=== PATIENT | female | born 1960 | race Caucasian/White ===

== ENCOUNTER 2018-02-17 14:32 | Emergency (ER) | payer BC ==
[2018-02-17 15:31] LABS: Basophils % (A) 1 %; Eosinophils # (A) 0.3 k/uL (0-0.7); Eosinophils % (A) 7 %; HCT 35.4 % (34.0-46.0); HGB 11.1 gm/dL (11.4-16.0); Hypochromasia Slight; Lymphocytes # (A) 1.6 k/uL (1.0-4.8); Lymphocytes % (A) 33 %; MCH 27.3 pg (25.0-35.0); MCHC 31.4 g/dL (31.0-37.0); Mean Platelet Volume 6.9; Monocytes # (A) 0.4 k/uL (0-1.0); Monocytes % (A) 8 %; Neutrophils # (A) 2.4 k/uL (1.3-7.7); Neutrophils % (A) 49 %; Platelet Count 230 k/uL (150-450); RBC 4.07 m/uL (3.80-5.40); RDW 14.1 % (11.5-15.5); WBC 4.9 k/uL (3.8-10.6)
[2018-02-17] MEDS ORDERED: IOPAMIDOL-300 CONTRAST 30 ML VIAL (ORAL USE) PO PRN (15:45)
[2018-02-17] MEDS ORDERED: SODIUM CHLORIDE 0.9% 1,000 ML IV STA (15:45)
[2018-02-17] MEDS ORDERED: HYDROmorphone 1 MG/ML 1 ML SYRINGE IVP STA ×3 (15:45→19:11)
[2018-02-17] MEDS ORDERED: FAMOTIDINE 20 MG/2 ML VIAL IV STA (15:46)
[2018-02-17 15:47] LABS: ALT 34 U/L (9-52); AST 32 U/L (14-36); Alkaline Phosphatase 59 U/L (38-126); Amylase 68 U/L (30-110); Anion Gap 9 mmol/L; Blood Urea Nitrogen 18 mg/dL (7-17); Calcium 9.3 mg/dL (8.4-10.2); Carbon Dioxide 25 mmol/L (22-30); Chloride 106 mmol/L (98-107); Glucose 92 mg/dL (74-99); Lipase 95 U/L (23-300); Potassium 4.4 mmol/L (3.5-5.1); Sodium 140 mmol/L (137-145); Total Bilirubin 0.3 mg/dL (0.2-1.3); Total Protein 6.4 g/dL (6.3-8.2)
--- NOTE | 2018-02-17 15:55 | ED ---
General Adult HPI - General Chief complaint: Abdominal Pain Stated complaint: Back/Abd Pain Time Seen by Provider: 02/17/18 15:34 Source: patient, RN notes reviewed Mode of arrival: ambulatory Limitations: no limitations - History of Present Illness Initial comments: Patient is a pleasant 57-year-old female presenting to the emergency Department with abdominal discomfort. Onset was middle morning. Discomfort was more in the back at first however now is evenly between the abdomen and back. Discomfort is not necessary positional. Discomfort is diffusely the abdomen. No associated nausea or vomiting. patient diarrhea. No fevers. Discomfort is becoming severe. Patient has had occasional abdominal discomfort however not quite like this. - Related Data Home Medications Medication Instructions Recorded Confirmed Biotin 5 mg PO DAILY 02/17/18 02/17/18 Cholecalciferol (Vitamin D3) 2,000 unit PO DAILY 02/17/18 02/17/18 [Vitamin D3] Magnesium Oxide 400 mg PO DAILY 02/17/18 02/17/18 Omeprazole Magnesium [PriLOSEC OTC] 20 mg PO DAILY 02/17/18 02/17/18 Potassium 99 mg PO DAILY 02/17/18 02/17/18 Ubidecarenone [Co Q-10] 100 mg PO DAILY 02/17/18 02/17/18 Vitamin B Complex 1 cap PO DAILY 02/17/18 02/17/18 Allergies Allergy/AdvReac Type Severity Reaction Status Date / Time No Known Allergies Allergy Verified 02/17/18 17:50 Review of Systems ROS Statement: Those systems with pertinent positive or pertinent negative responses have been documented in the HPI. ROS Other: All systems not noted in ROS Statement are negative. Constitutional: Denies: fever Eyes: Denies: eye pain ENT: Denies: ear pain Respiratory: Denies: cough Cardiovascular: Denies: chest pain Endocrine: Denies: fatigue Gastrointestinal: Reports: abdominal pain. Denies: nausea, vomiting Genitourinary: Denies: dysuria Musculoskeletal: Reports: back pain Skin: Denies: rash Neurological: Denies: weakness Past Medical History Past Medical History: No Reported History History of Any Multi-Drug Resistant Organisms: None Reported Past Surgical History: Hernia Repair, Tubal Ligation Additional Past Surgical History / Comment(s): gastric bypass, Past Psychological History: Depression Smoking Status: Never smoker Past Alcohol Use History: None Reported Past Drug Use History: None Reported General Exam Limitations: no limitations General appearance: alert, in no apparent distress Head exam: Present: atraumatic Eye exam: Present: normal appearance, PERRL ENT exam: Present: normal oropharynx Neck exam: Present: normal inspection Respiratory exam: Present: normal lung sounds bilaterally Cardiovascular Exam: Present: regular rate, normal rhythm Expanded Peripheral pulses: 2+: Radial (R), Radial (L), Dorsalis Pedis (R), Dorsalis Pedis (L) GI/Abdominal exam: Present: soft, tenderness (Moderate tenderness in the epigastric region), normal bowel sounds. Absent: distended, guarding, rebound, rigid, pulsatile mass Extremities exam: Present: normal inspection. Absent: pedal edema, calf tenderness Back exam: Present: normal inspection. Absent: tenderness, CVA tenderness (R), CVA tenderness (L), vertebral tenderness Neurological exam: Present: alert Psychiatric exam: Present: normal affect, normal mood Skin exam: Present: normal color Course Vital Signs 02/17/18 02/17/18 15:03 17:06 Temperature 98.4 F 97.4 F L Pulse Rate 59 L 68 Respiratory 18 18 Rate Blood Pressure 161/88 173/76 O2 Sat by Pulse 100 98 Oximetry - Reevaluation(s) Reevaluation #1: 02/17/18 17:06 Case was discussed with Dr. Witt who states she does not manage bariatric cases. She recommends calling who is on-call for Dr. Pinto otherwise patient will need to be transferred. 02/17/18 17:19 Patient states her surgery was over a decade ago someplace in [place]. Patient does not recall which hospital it was at. Patient does not recall who her surgeon was. 02/17/18 17:34 Case was discussed with Dr. Abdalla who also has concerns regarding full bariatric surgery. Case was also discussed with Dr. Forman who was not available at this time, she is not on-call. Patient and family are again updated. They do not want to make a decision on which facility transfer at this time until they talk to another family member. They are encouraged to make a decision in the near future as there is concern for worsening of patient' s condition. 02/17/18 17:45 Patient believes her surgery was at [facility] and they are being contacted at this time. 02/17/18 17:56 Case was discussed with Jasper at [facility] transfer. He was specifically made aware that this was an emergent transfer and patient would likely need surgery in the near future. He does request the face sheet faxed to him and he will contact us back. 02/17/18 18:18 Jasper from [facility] did call back and states they unable to find records of patient's surgery there. They will attempt to find a surgeon for me to talk to. 02/17/18 19:06 Case was discussed with Dr. Siddiqui at [facility]. He states patient did have her surgery at [facility] with Dr. Ayala previously and will accept the patient to [facility]. EKG Findings - EKG Comments: EKG Findings:: Normal sinus rhythm 60. [place] 152. QRS 88. QT 446. QTc 446. Normal axis. Normal QRS. No acute ST change. Medical Decision Making - Lab Data Result diagrams: 02/17/18 15:19 02/17/18 15:19 Lab Results 02/17/18 02/17/18 02/17/18 Range/Units 15:19 15:19 15:19 WBC 4.9 (3.8-10.6) k/uL RBC 4.07 (3.80-5.40) m/uL Hgb 11.1 L (11.4-16.0) gm/dL Hct 35.4 (34.0-46.0) % MCV 87.0 (80.0-100.0) fL MCH 27.3 (25.0-35.0) pg MCHC 31.4 (31.0-37.0) g/dL RDW 14.1 (11.5-15.5) % Plt Count 230 (150-450) k/uL Neutrophils % 49 % Lymphocytes % 33 % Monocytes % 8 % Eosinophils % 7 % Basophils % 1 % Neutrophils # 2.4 (1.3-7.7) k/uL Lymphocytes # 1.6 (1.0-4.8) k/uL Monocytes # 0.4 (0-1.0) k/uL Eosinophils # 0.3 (0-0.7) k/uL Basophils # 0.0 (0-0.2) k/uL Hypochromasia Slight PT (9.0-12.0) sec INR (<1.2) APTT (22.0-30.0) sec Sodium 140 (137-145) mmol/L Potassium 4.4 (3.5-5.1) mmol/L Chloride 106 (98-107) mmol/L Carbon Dioxide 25 (22-30) mmol/L Anion Gap 9 mmol/L BUN 18 H (7-17) mg/dL Creatinine 0.70 (0.52-1.04) mg/dL Est GFR (CKD-EPI)AfAm >90 (>60 ml/min/1.73 sqM) Est GFR (CKD-EPI)NonAf >90 (>60 ml/min/1.73 sqM) Glucose 92 (74-99) mg/dL Calcium 9.3 (8.4-10.2) mg/dL Total Bilirubin 0.3 (0.2-1.3) mg/dL AST 32 (14-36) U/L ALT 34 (9-52) U/L Alkaline Phosphatase 59 (38-126) U/L Total Creatine Kinase 331 H (30-135) U/L CK-MB (CK-2) 1.4 (0.0-2.4) ng/mL CK-MB (CK-2) Rel Index 0.4 Troponin I <0.012 (0.000-0.034) ng/mL Total Protein 6.4 (6.3-8.2) g/dL Albumin 4.0 (3.5-5.0) g/dL Amylase 68 (30-110) U/L Lipase 95 (23-300) U/L Urine Color Urine Appearance (Clear) Urine pH (5.0-8.0) Ur Specific [place] (1.001-1.035) Urine Protein (Negative) Urine Glucose (UA) (Negative) Urine Ketones (Negative) Urine Blood (Negative) Urine Nitrite (Negative) Urine Bilirubin (Negative) Urine Urobilinogen (<2.0) mg/dL Ur Leukocyte Esterase (Negative) Urine RBC (0-5) /hpf Urine WBC (0-5) /hpf Ur Squamous Epith Cells (0-4) /hpf Amorphous Sediment (None) /hpf 02/17/18 02/17/18 Range/Units 15:19 18:36 WBC (3.8-10.6) k/uL RBC (3.80-5.40) m/uL Hgb (11.4-16.0) gm/dL Hct (34.0-46.0) % MCV (80.0-100.0) fL MCH (25.0-35.0) pg MCHC (31.0-37.0) g/dL RDW (11.5-15.5) % Plt Count (150-450) k/uL Neutrophils % % Lymphocytes % % Monocytes % % Eosinophils % % Basophils % % Neutrophils # (1.3-7.7) k/uL Lymphocytes # (1.0-4.8) k/uL Monocytes # (0-1.0) k/uL Eosinophils # (0-0.7) k/uL Basophils # (0-0.2) k/uL Hypochromasia PT 9.8 (9.0-12.0) sec INR 1.0 (<1.2) APTT 23.0 (22.0-30.0) sec Sodium (137-145) mmol/L Potassium (3.5-5.1) mmol/L Chloride (98-107) mmol/L Carbon Dioxide (22-30) mmol/L Anion Gap mmol/L BUN (7-17) mg/dL Creatinine (0.52-1.04) mg/dL Est GFR (CKD-EPI)AfAm (>60 ml/min/1.73 sqM) Est GFR (CKD-EPI)NonAf (>60 ml/min/1.73 sqM) Glucose (74-99) mg/dL Calcium (8.4-10.2) mg/dL Total Bilirubin (0.2-1.3) mg/dL AST (14-36) U/L ALT (9-52) U/L Alkaline Phosphatase (38-126) U/L Total Creatine Kinase (30-135) U/L CK-MB (CK-2) (0.0-2.4) ng/mL CK-MB (CK-2) Rel Index Troponin I (0.000-0.034) ng/mL Total Protein (6.3-8.2) g/dL Albumin (3.5-5.0) g/dL Amylase (30-110) U/L Lipase (23-300) U/L Urine Color Yellow Urine Appearance Clear (Clear) Urine pH 5.0 (5.0-8.0) Ur Specific [place] 1.041 H (1.001-1.035) Urine Protein Negative (Negative) Urine Glucose (UA) Negative (Negative) Urine Ketones 1+ H (Negative) Urine Blood Trace H (Negative) Urine Nitrite Negative (Negative) Urine Bilirubin Negative (Negative) Urine Urobilinogen <2.0 (<2.0) mg/dL Ur Leukocyte Esterase Moderate H (Negative) Urine RBC 3 (0-5) /hpf Urine WBC 12 H (0-5) /hpf Ur Squamous Epith Cells 6 H (0-4) /hpf Amorphous Sediment Rare H (None) /hpf - Radiology Data Radiology results: report reviewed (Computed tomography scan of the abdomen and pelvis has small bowel mesentery edema and spiral appearance of the vessels that could be related to torsion. There is abrupt change in diameter of the SMA.) Critical Care Time Critical Care Time: Yes Total Critical Care Time: 35 Disposition Clinical Impression: Torsion of intestine, bowel or colon Disposition: OTHER INSTITUTION NOT DEFINED Condition: Serious Is patient prescribed a controlled substance at d/c from ED?: No Referrals: Nonstaff,Physician [Primary Care Provider] - 1-2 days Time of Disposition: 19:07 - Out of Hospital Transfer - Req. Specs Out of Hospital Transfer - Requested Specifics: Other Emergency Center
[2018-02-17 16:04] LABS: Prothrombin Time 9.8 sec (9.0-12.0)
[2018-02-17 16:05] LABS: Creatine Kinase 331 U/L (30-135)
[2018-02-17 16:18] LABS: Creatine Kinase MB 1.4 ng/mL (0.0-2.4); Troponin I <0.012 ng/mL (0.000-0.034)
--- NOTE | 2018-02-17 16:58 | CT ---
EXAMINATION TYPE: CT abdomen pelvis w con DATE OF EXAM: 02/17/2018 COMPARISON: None HISTORY: Abdominal pain with nausea, hx of gastric bypass CT DLP: 1072 mGycm Automated exposure control for dose reduction was used. TECHNIQUE: Helical acquisition of images was performed from the lung bases through the pelvis. CONTRAST: Performed with Oral Contrast and with IV Contrast, patient injected with 100 mL of Isovue 300. FINDINGS: Lung bases are clear. There is no pleural effusion. Heart size is normal. There are multiple cysts in the liver that measure up to 3 cm. There are clips from cholecystectomy. The common bile duct is large and measures 1.3 cm. There is no evidence of a pancreatic mass. There a re surgical clips from bariatric surgery. Spleen appears normal. I see no intestinal wall thickening. There are no dilated loops. There is small amount of free fluid in the pelvis. Bladder distends smoothly. Uterus is anteverted. There is no adrenal mass. Kidneys show satisfactory contrast opacification. There is no hydronephrosi s. there is probably some small bowel mesenteric edema. The lumbar spine is intact. There is degener ative disc space narrowing at L5-S1. Appendix measures 7 to 8 mm. I see no inflammatory changes. Ther e is spiral Appearance of the small bowel mesentery. IMPRESSION: THERE IS SOME SMALL BOWEL MESENTERIC EDEMA AND SPIRAL APPEARANCE OF THE SMALL BOWEL MESENTERIC VESSEL S THAT COULD RELATE TO A TORSION. THERE IS ABRUPT CHANGE IN DIAMETER OF THE SUPERIOR MESENTERIC ARTER Y THAT IS BEST SEEN ON SAGITTAL IMAGE 35. MULTIPLE HEPATIC CYSTS. PREVIOUS BARIATRIC SURGERY. NO SIGN OF APPENDICITIS. THIS EXAM WAS DISCUSSED WITH THE ER PHYSICIAN AT 4:50 PM.
[2018-02-17] MEDS ORDERED: ONDANSETRON 4 MG/2 ML VIAL IVP STA ×2 (17:05→19:11)
[2018-02-17 18:51] LABS: Amorphous Sediment,Urine Rare /hpf; Appearance,Urine Clear (Clear); Bilirubin,Urine Negative (Negative); Blood,Urine Trace (Negative); Color,Urine Yellow; Glucose,Urine (UA) Negative (Negative); Ketones,Urine 1+ (Negative); Leukocyte Esterase,Urine Moderate (Negative); Nitrite,Urine Negative (Negative); Protein,Urine Negative (Negative); RBC,Urine 3 /hpf (0-5); Specific Gravity,Urine 1.041 (1.001-1.035); Squamous Epithelial Cell,Urine 6 /hpf (0-4); Urobilinogen,Urine <2.0 mg/dL (<2.0); WBC,Urine 12 /hpf (0-5)
[2018-02-17 19:26] VITALS: BP 186/90; PULSE 83; RESP 17; TEMP 98.8
== END 2018-02-17 19:27 | disposition other institution (70) ==
LOC: EC 14:32 → MERGE 14:32 → EC 19:27
DX: K56.2 Volvulus (principal); Z79.899 Other long term (current) drug therapy; Z98.84 Bariatric surgery status
CPT/HCPCS: 36415; 93005; 80053; 82150; 82550; 82553; 83690; 84484; 85025; 85610; 85730; 81001; 74177; 99291; 96374; 96375 ×2; 96376 ×3; 96361; J2405; J1170; Q9967

== ENCOUNTER 2020-04-17 19:53 | Inpatient (IN) | payer BC ==
--- NOTE | 2020-04-17 20:29 | ED ---
Abdominal Pain HPI - General Chief Complaint: Abdominal Pain Stated Complaint: Abdominal pain Time Seen by Provider: 04/17/20 20:00 Source: patient Mode of arrival: ambulatory Limitations: no limitations - History of Present Illness Initial Comments: 59-year-old female history of previous hernia repair, gastric bypass presenting today for chief complaint of lower abdominal pain nausea. Patient states that she has had lower abdominal pain increasing for the past 3 days. She states. He'll be much secondary to the pain as well as the nausea denies vomiting she states that her bowel movements are smaller and now more soft. She denies alin diarrhea. Denies constipation. Patient denies any fevers rashes or upper respiratory symptoms. Patient started additional complaints upon arrival patient appears nontoxic, she does appear slightly uncomfortable with a lot of movement - Related Data Home Medications Medication Instructions Recorded Confirmed Omeprazole Magnesium [PriLOSEC OTC] 20 mg PO DAILY 02/17/18 04/17/20 DULoxetine HCL [Cymbalta] 60 mg PO DAILY 04/17/20 04/17/20 hydrOXYzine pamoate [Vistaril] 25 mg PO BID 04/17/20 04/17/20 Allergies Allergy/AdvReac Type Severity Reaction Status Date / Time No Known Allergies Allergy Verified 04/17/20 19:57 Review of Systems ROS Statement: Those systems with pertinent positive or pertinent negative responses have been documented in the HPI. ROS Other: All systems not noted in ROS Statement are negative. Past Medical History Past Medical History: No Reported History History of Any Multi-Drug Resistant Organisms: None Reported Past Surgical History: Hernia Repair, Tubal Ligation Additional Past Surgical History / Comment(s): gastric bypass Past Psychological History: Depression Smoking Status: Never smoker Past Alcohol Use History: None Reported Past Drug Use History: None Reported General Exam - General Exam Comments Initial Comments: General: The patient is awake and alert, in no distress Eye: Pupils are equal, round and reactive to light, extra-ocular movements are intact. No nystagmus. There is normal conjunctiva bilaterally. No signs of icterus. Ears, nose, mouth and throat: There are moist mucous membranes and no oral lesions. Neck: The neck is supple, there is no tenderness or JVD. Cardiovascular: There is a regular rate and rhythm. No murmur, rub or gallop is appreciated. Respiratory: Lungs are clear to auscultation, respirations are non-labored, breath sounds are equal. No wheezes, stridor, rales, or rhonchi. Gastrointestinal: Soft, non-distended, diffuse moderate lower abdominal tenderness to palpation, abdomen without masses or organomegaly noted. There is no rebound or guarding present. Musculoskeletal: Normal ROM, no tenderness. Strength 5/5. Sensation intact. Radial pulses equal bilaterally 2+. Neurological: A&O x 3. CN II-XII intact grosslly, There are no obvious motor or sensory deficits. Coordination appears grossly intact. Speech is normal. Skin: Skin is warm and dry and no rashes or lesions are noted. Psychiatric: Cooperative, appropriate mood & affect, normal judgment. Limitations: no limitations Course Vital Signs 04/17/20 04/17/20 04/17/20 19:55 21:19 22:15 Temperature 97.0 F L 97.9 F Pulse Rate 75 75 82 Respiratory 18 18 18 Rate Blood Pressure 148/91 145/89 138/80 O2 Sat by Pulse 100 99 96 Oximetry Medical Decision Making - Medical Decision Making Pt appears clinically dry, labs reflect increase of Cr consistent with dehydration giivne history. Patient CT concerning for possible developing obstruction. Patient is tender on exam. I feel this is most likely diagnosis with hx of prevous intraabdominal surgeries. Patient case discussed with Dr. Guajardo who reviewd CT/Labs he is agreeable to admission. Dr. Hobbs accepted admission, i spoke to him in person in the ER. - Lab Data Result diagrams: 04/17/20 20:16 04/17/20 20:16 Lab Results 04/17/20 04/17/20 04/17/20 Range/Units 20:16 20:16 20:16 WBC 6.8 (3.8-10.6) k/uL RBC 4.41 (3.80-5.40) m/uL Hgb 12.1 (11.4-16.0) gm/dL Hct 38.4 (34.0-46.0) % MCV 87.1 (80.0-100.0) fL MCH 27.5 (25.0-35.0) pg MCHC 31.6 (31.0-37.0) g/dL RDW 14.5 (11.5-15.5) % Plt Count 258 (150-450) k/uL Neutrophils % 57 % Lymphocytes % 28 % Monocytes % 7 % Eosinophils % 4 % Basophils % 1 % Neutrophils # 3.9 (1.3-7.7) k/uL Lymphocytes # 1.9 (1.0-4.8) k/uL Monocytes # 0.5 (0-1.0) k/uL Eosinophils # 0.3 (0-0.7) k/uL Basophils # 0.0 (0-0.2) k/uL Hypochromasia Slight Sodium 138 (137-145) mmol/L Potassium 4.3 (3.5-5.1) mmol/L Chloride 107 (98-107) mmol/L Carbon Dioxide 25 (22-30) mmol/L Anion Gap 6 mmol/L BUN 24 H (7-17) mg/dL Creatinine 1.14 H (0.52-1.04) mg/dL Est GFR (CKD-EPI)AfAm 62 (>60 ml/min/1.73 sqM) Est GFR (CKD-EPI)NonAf 53 (>60 ml/min/1.73 sqM) Glucose 84 (74-99) mg/dL Calcium 9.4 (8.4-10.2) mg/dL Total Bilirubin 0.3 (0.2-1.3) mg/dL AST 22 (14-36) U/L ALT 13 (4-34) U/L Alkaline Phosphatase 77 (38-126) U/L Total Protein 6.8 (6.3-8.2) g/dL Albumin 4.1 (3.5-5.0) g/dL Amylase 74 (30-110) U/L Lipase 137 (23-300) U/L Urine Color Light Yellow Urine Appearance Clear (Clear) Urine pH 5.0 (5.0-8.0) Ur Specific [place] 1.008 (1.001-1.035) Urine Protein Negative (Negative) Urine Glucose (UA) Negative (Negative) Urine Ketones Negative (Negative) Urine Blood Trace H (Negative) Urine Nitrite Negative (Negative) Urine Bilirubin Negative (Negative) Urine Urobilinogen <2.0 (<2.0) mg/dL Ur Leukocyte Esterase Large H (Negative) Urine RBC 3 (0-5) /hpf Urine WBC 14 H (0-5) /hpf Ur Squamous Epith Cells 1 (0-4) /hpf Urine Mucus Rare H (None) /hpf Disposition Clinical Impression: Partial bowel obstruction, Abdominal pain, Nausea Disposition: ADMITTED IP TO THIS [facility] Condition: Stable Is patient prescribed a controlled substance at d/c from ED?: No Referrals: Nonstaff,Physician [Primary Care Provider] - 1-2 days Time of Disposition: 22:19 Decision to Admit Reason: Admit from EC Decision Date: 04/17/20 Decision Time: 22:19
[2020-04-17 20:33] LABS: Basophils % (A) 1 %; Eosinophils # (A) 0.3 k/uL (0-0.7); Eosinophils % (A) 4 %; HCT 38.4 % (34.0-46.0); HGB 12.1 gm/dL (11.4-16.0); Hypochromasia Slight; Lymphocytes # (A) 1.9 k/uL (1.0-4.8); Lymphocytes % (A) 28 %; MCH 27.5 pg (25.0-35.0); MCHC 31.6 g/dL (31.0-37.0); MCV 87.1 fL (80.0-100.0); Mean Platelet Volume 7.2; Monocytes # (A) 0.5 k/uL (0-1.0); Monocytes % (A) 7 %; Neutrophils # (A) 3.9 k/uL (1.3-7.7); Neutrophils % (A) 57 %; Platelet Count 258 k/uL (150-450); RBC 4.41 m/uL (3.80-5.40); RDW 14.5 % (11.5-15.5); WBC 6.8 k/uL (3.8-10.6)
[2020-04-17 20:41] LABS: Albumin 4.1 g/dL (3.5-5.0); Calcium 9.4 mg/dL (8.4-10.2); Potassium 4.3 mmol/L (3.5-5.1); Total Bilirubin 0.3 mg/dL (0.2-1.3); Total Protein 6.8 g/dL (6.3-8.2)
[2020-04-17 20:55] LABS: Appearance,Urine Clear (Clear); Bilirubin,Urine Negative (Negative); Blood,Urine Trace (Negative); Color,Urine Light Yellow; Glucose,Urine (UA) Negative (Negative); Ketones,Urine Negative (Negative); Leukocyte Esterase,Urine Large (Negative); Mucus,Urine Rare /hpf; Nitrite,Urine Negative (Negative); Protein,Urine Negative (Negative); RBC,Urine 3 /hpf (0-5); Specific Gravity,Urine 1.008 (1.001-1.035); Squamous Epithelial Cell,Urine 1 /hpf (0-4); Urobilinogen,Urine <2.0 mg/dL (<2.0); WBC,Urine 14 /hpf (0-5)
[2020-04-17] MEDS ORDERED: SODIUM CHLORIDE 0.9% 500 ML 500 ML IV ONE (21:03)
[2020-04-17] MEDS: SODIUM CHLORIDE 0.9% 1,000 ML IV SCH (21:18)
--- NOTE | 2020-04-17 21:31 | CT ---
EXAMINATION TYPE: CT abdomen pelvis w con DATE OF EXAM: 04/17/2020 COMPARISON: None HISTORY: Lower abdominal pain, hx abdominal sx CT DLP: 911.6 mGycm Automated exposure control for dose reduction was used. CONTRAST: Performed with IV Contrast, patient injected with 100 mL of Isovue 300. Lung bases are clear of infiltrate. There is no pleural effusion. Heart size is normal. There is prev ious gastric surgery. There are numerous cysts throughout the liver that measure up to 5.5 cm. Bile d ucts are not dilated. Spleen is intact. There is no evidence of pancreatic mass. There are clips from cholecystectomy. There is no adrenal mass. Kidneys show satisfactory contrast opacification. There is no hydronephrosi s. Delayed images show normal renal excretion. There is no retroperitoneal adenopathy. Bladder disten ds smoothly. Ureters are not dilated. There are multiple distended fluid-filled small bowel loops throughout the abdomen. Small bowel measu res up to 3 cm. there is no mesenteric edema. There is no ascites or free air. Lumbar vertebra have n ormal alignment. There is narrowing at L5-S1 disc. There is no compression fracture. Bony pelvis is i ntact. Uterus is retroverted. There is no free fluid in the pelvis. There is no inguinal hernia. Appe ndix is not seen. IMPRESSION: Distended small bowel with fluid that could relate to some ileus. Partial mechanical obstruction is p ossible. Transition point not seen. Polycystic disease of the liver.
[2020-04-17] MEDS ORDERED: ONDANSETRON 4 MG/2 ML VIAL IVP PRN (22:04)
[2020-04-17] MEDS ORDERED: MORPHINE SULFATE 2 MG/ML SYRINGE IVP PRN (22:07)
[2020-04-17] MEDS ORDERED: NALOXONE 0.4 MG/ML 1 ML VIAL IV PRN (22:07)
[2020-04-17] MEDS ORDERED: PIPERACILLIN-TAZOBACTAM 3.375 GM in SODIUM CHLORIDE 0.9% 100 ML IVPB ONE (22:30)
[2020-04-18] MEDS: SODIUM CHLORIDE 0.9% 1,000 ML IV SCH ×4 (00:04→22:35)
--- NOTE | 2020-04-18 03:00 | P.HPIM ---
History of Present Illness H&P Date: 04/18/20 The patient is a 59-year-old female with a PMH of gastric bypass and hernia repair who presented to the emergency room with complaints of right lower quadrant abdominal pain. The patient reports that her pain started a few weeks ago, is intermittent, varying in intensity from 3-7 out of 10, lasting for minutes at a time. She reported associated nausea without vomiting. Denied diarrhea or constipation. Also denied fever, chills. Reports never having such symptoms in the past. CT abdomen and pelvis in the emergency room revealed distended small bowel loops with fluid suspicious for ileus versus partial SBO. Laboratory evaluation was reviewed with BUN 24 and creatinine 1.14. Review of Systems Pertinent positives and negatives as discussed in HPI, a complete review of systems was performed and all other systems are negative. Past Medical History Past Medical History: No Reported History History of Any Multi-Drug Resistant Organisms: None Reported Past Surgical History: Hernia Repair, Tubal Ligation Additional Past Surgical History / Comment(s): gastric bypass Past Psychological History: Depression Smoking Status: Never smoker Past Alcohol Use History: None Reported Past Drug Use History: None Reported Medications and Allergies Home Medications Medication Instructions Recorded Confirmed Type Omeprazole Magnesium [PriLOSEC OTC] 20 mg PO DAILY 02/17/18 04/17/20 History DULoxetine HCL [Cymbalta] 60 mg PO DAILY 04/17/20 04/17/20 History hydrOXYzine pamoate [Vistaril] 25 mg PO BID 04/17/20 04/17/20 History Allergies Allergy/AdvReac Type Severity Reaction Status Date / Time No Known Allergies Allergy Verified 04/17/20 19:57 Physical Exam Vitals: Vital Signs Temp Pulse Pulse Resp BP BP Pulse Ox 04/17/20 23:53 97.8 F 67 18 155/88 96 04/17/20 22:15 97.9 F 82 18 138/80 96 04/17/20 21:19 75 18 145/89 99 04/17/20 19:55 97.0 F L 75 18 148/91 100 Intake and Output 04/17/20 04/17/20 04/18/20 14:59 22:59 06:59 Other: Weight 79.379 kg 79.379 kg General: non toxic, no distress, appears at stated age, normal weight Derm: no unusual rashes/lesions no unusual ecchymoses, warm, dry Head: atraumatic, normocephalic, symmetric Eyes: EOMI, no lid lag, anicteric sclera, pupils equal round reactive to light ENT: Nose and ears atraumatic, no thrush, no pharyngeal erythema Neck: No thyromegaly, no cervical lymphadenopathy, trachea midline, supple Mouth: no lip lesion, mucus membranes moist Cardiovascular: S1S2 reg, no murmur, positive posterior tibial pulse bilateral, no edema, capillary refill less than 2 seconds Lungs: CTA bilateral, no rhonchi, no rales , no accessory muscle use Abdominal: soft, right lower quadrant mild tenderness to palpation, no guarding, no appreciable organomegaly, normal bowel sounds Ext: no gross muscle atrophy, muscle strength 5 out of 5 in all 4 extremities grossly, no contractures, Neuro: CN II-XI grossly intact, light touch intact all 4 extremities, finger to nose within normal limits, Psych: Alert, oriented, appropriate affect Results CBC & Chem 7: 04/17/20 20:16 04/17/20 20:16 Labs: Abnormal Lab Results - Last 24 Hours (Table) 04/17/20 04/17/20 04/17/20 Range/Units 20:16 20:16 22:15 BUN 24 H (7-17) mg/dL Creatinine 1.14 H (0.52-1.04) mg/dL Plasma Lactic Acid [place] 0.6 L (0.7-2.0) mmol/L Urine Blood Trace H (Negative) Ur Leukocyte Esterase Large H (Negative) Urine WBC 14 H (0-5) /hpf Urine Mucus Rare H (None) /hpf Thrombosis Risk Factor Assmnt - Choose All That Apply Each Factor Represents 1 point: Age 41-60 years, Obesity (BMI >25) Thrombosis Risk Factor Assessment Total Risk Factor Score: 2 Thrombosis Risk Factor Assessment Level: Low Risk Assessment and Plan Plan: Abdominal pain, suspected partial SBO -Nothing by mouth for now -Surgery consult -Antiemetics Prerenal DEMLY -Continue with IV fluids -Monitor BMP DVT prophylaxis -IPCDs The patient is admitted with an anticipated less than 2 midnight stay for evaluation of abdominal pain CODE STATUS: Full Code Discussed with: Patient Anticipated discharge date: in am Anticipated discharge place: Home A total of 35 minutes was spent on the care of this complex patient more than 50% of the time was spent in counseling and care coordination.
[2020-04-18 09:49] LABS: African American GFR (CKD) 81.7 (60.0-200.0); Anion Gap 2.9 mmol/L (4.00-12.00); BUN/Creat Ratio 21.11 Ratio (12.00-20.00); Calcium 8.3 mg/dL (8.7-10.3); Carbon Dioxide 29.1 mmol/L (21.6-31.8); Non-African American GFR(CKD) 70.5 (60.0-200.0)
[2020-04-18] MEDS ORDERED: polyethylene glycoL 3350 17 GM POWD.PACK PO STA (11:37)
--- NOTE | 2020-04-18 12:45 | P.GSCN ---
<Giselle Lang - Last Filed: 04/18/20 13:34> History of Present Illness Consult date: 04/18/20 History of present illness: CHIEF COMPLAINT: Abdominal pain HISTORY OF PRESENT ILLNESS: This is a 59-year-old female with a past medical history of T[place]ion of the bowel [place] [facility] [place], gerd, gastric [place] 2009 [place] [facility] [place] hiatal hernia repair 3 and Tummy tuck. Patient presents to the emergency room with complaints of right lower quadrant abdominal pain has been intermittent for the last week. She reports that the pain is sharp in the right lower quadrant and also has had a burning sensation in her stomach. She denies any nausea or vomiting. Her last bowel movement was yesterday which was very small in diameter. She also reports that she is been passing gas. She denies any blood in her stools. She had a computed tomography scan of the abdomen and pelvis that showed distended small bowel with fluid that could relate to ileus. Partial mechanical obstruction is possible. Transition point not seen. Polycystic disease of the liver. She denies any fever, chills, sweat s or urinary symptoms. PAST MEDICAL HISTORY: See list. PAST SURGICAL HISTORY: See list. MEDICATIONS: See list. ALLERGIES: See list. SOCIAL HISTORY: No illicit drug use. REVIEW OF SYSTEMS: CONSTITUTIONAL: Denies fever or chills. HEENT: Denies blurred vision, vision changes, or eye pain. Denies hemoptysis CARDIOVASCULAR: Denies chest pain or pressure. RESPIRATORY: No shortness of breath. GASTROINTESTINAL: See HPI for pertinent findings HEMATOLOGIC: Denies bleeding disorders. GENITOURINARY: Denies any blood in urine or increased urinary frequency. SKIN: Denies pruitis. Denies rash. PHYSICAL EXAM: VITAL SIGNS: Reviewed GENERAL: Well-developed in no acute distress. HEENT: No sclera icterus. Extraocular movements grossly intact. Moist buccal mucosa. Head is atraumatic, normocephalic. No nasal drainage. ABDOMEN: Soft. Nondistended. Nontender NEUROLOGIC: Alert and oriented. Cranial nerves II through XII grossly intact. LABORATORY DATA: WBC 6.8 hemoglobin 12.1 creatinine 0.9 Lactic 0.6 Lipase and LFTs normal Urine culture pending IMAGING: computed tomography scan of the abdomen and pelvis that showed distended small bowel with fluid that could relate to ileus. Partial mechanical obstruction is possible. Transition point not seen. Polycystic disease of the liver. ASSESSMENT: 1. Ileus versus partial small bowel obstruction 2. History of Torsion of the bowel secondary to hernia [place] [facility] [place]. History of gastric bypass 2008 4. GERD PLAN: -recommend treating conservatively -Agree with full liquid diet -Continue with IV fluids Thank you for this consultation Physician Scientific Informatics Leader note has been reviewed by physician. Signing provider agrees with the documented findings, assessment, and plan of care. Past Medical History Past Medical History: No Reported History History of Any Multi-Drug Resistant Organisms: None Reported Past Surgical History: Hernia Repair, Tubal Ligation Additional Past Surgical History / Comment(s): gastric bypass Past Psychological History: Depression Smoking Status: Never smoker Past Alcohol Use History: None Reported Past Drug Use History: None Reported Medications and Allergies Home Medications Medication Instructions Recorded Confirmed Type Omeprazole Magnesium [PriLOSEC OTC] 20 mg PO DAILY 02/17/18 04/17/20 History DULoxetine HCL [Cymbalta] 60 mg PO DAILY 04/17/20 04/17/20 History hydrOXYzine pamoate [Vistaril] 25 mg PO BID 04/17/20 04/17/20 History Allergies Allergy/AdvReac Type Severity Reaction Status Date / Time No Known Allergies Allergy Verified 04/17/20 19:57 Surgical - Exam Vital Signs Temp Pulse Resp BP Pulse Ox 97.0 F L 75 18 148/91 100 04/17/20 19:55 04/17/20 19:55 04/17/20 19:55 04/17/20 19:55 04/17/20 19:55 Results - Labs 04/17/20 20:16 04/18/20 04:45 Abnormal Lab Results - Last 24 Hours (Table) 04/17/20 04/17/20 04/17/20 Range/Units 20:16 20:16 22:15 Chloride (96-109) mmol/L Anion Gap (4.00-12.00) mmol/L BUN 24 H (7-17) mg/dL Creatinine 1.14 H (0.52-1.04) mg/dL BUN/Creatinine Ratio (12.00-20.00) Ratio Plasma Lactic Acid Costa 0.6 L (0.7-2.0) mmol/L Calcium (8.7-10.3) mg/dL Urine Blood Trace H (Negative) Ur Leukocyte Esterase Large H (Negative) Urine WBC 14 H (0-5) /hpf Urine Mucus Rare H (None) /hpf 04/18/20 Range/Units 04:45 Chloride 110 H (96-109) mmol/L Anion Gap 2.90 L (4.00-12.00) mmol/L BUN (7-17) mg/dL Creatinine (0.52-1.04) mg/dL BUN/Creatinine Ratio 21.11 H (12.00-20.00) Ratio Plasma Lactic Acid Costa (0.7-2.0) mmol/L Calcium 8.3 L (8.7-10.3) mg/dL Urine Blood (Negative) Ur Leukocyte Esterase (Negative) Urine WBC (0-5) /hpf Urine Mucus (None) /hpf Microbiology - Last 24 Hours (Table) 04/17/20 20:16 Urine Culture - Preliminary Urine,Voided Diabetes panel 04/17/20 04/18/20 Range/Units 20:16 04:45 Sodium 138 142 (137-145) mmol/L Potassium 4.3 4.0 (3.5-5.1) mmol/L Chloride 107 110 H (98-107) mmol/L Carbon Dioxide 25 29.1 (22-30) mmol/L BUN 24 H 19.0 (7-17) mg/dL Creatinine 1.14 H 0.9 (0.52-1.04) mg/dL Glucose 84 87 (74-99) mg/dL Calcium 9.4 8.3 L (8.4-10.2) mg/dL AST 22 (14-36) U/L ALT 13 (4-34) U/L Alkaline Phosphatase 77 (38-126) U/L Total Protein 6.8 (6.3-8.2) g/dL Albumin 4.1 (3.5-5.0) g/dL Calcium panel 04/17/20 04/18/20 Range/Units 20:16 04:45 Calcium 9.4 8.3 L (8.4-10.2) mg/dL Albumin 4.1 (3.5-5.0) g/dL Pituitary panel 04/17/20 04/18/20 Range/Units 20:16 04:45 Sodium 138 142 (137-145) mmol/L Potassium 4.3 4.0 (3.5-5.1) mmol/L Chloride 107 110 H (98-107) mmol/L Carbon Dioxide 25 29.1 (22-30) mmol/L BUN 24 H 19.0 (7-17) mg/dL Creatinine 1.14 H 0.9 (0.52-1.04) mg/dL Glucose 84 87 (74-99) mg/dL Calcium 9.4 8.3 L (8.4-10.2) mg/dL Adrenal panel 04/17/20 04/18/20 Range/Units 20:16 04:45 Sodium 138 142 (137-145) mmol/L Potassium 4.3 4.0 (3.5-5.1) mmol/L Chloride 107 110 H (98-107) mmol/L Carbon Dioxide 25 29.1 (22-30) mmol/L BUN 24 H 19.0 (7-17) mg/dL Creatinine 1.14 H 0.9 (0.52-1.04) mg/dL Glucose 84 87 (74-99) mg/dL Calcium 9.4 8.3 L (8.4-10.2) mg/dL Total Bilirubin 0.3 (0.2-1.3) mg/dL AST 22 (14-36) U/L ALT 13 (4-34) U/L Alkaline Phosphatase 77 (38-126) U/L Total Protein 6.8 (6.3-8.2) g/dL Albumin 4.1 (3.5-5.0) g/dL <Mathew Williamson - Last Filed: 04/18/20 17:24> History of Present Illness History of present illness: As well. Patient with right lower abdominal pain. Pain is been off-and-on for the last 1 week. She states her pain has essentially been gone since she was admitted to the hospital. No nausea or vomiting. Bowel movement yesterday and today. CAT scan films show mild small bowel loop dilatation. Air and stool throughout the colon. Findings of ileus versus partial small bowel obstruction noted by radiology. Appendix is not visualized. Patient unsure if she has had her appendix removed in the past. She is hungry. She is currently tolerating full liquids. Patient does have a history of small bowel obstruction after gastric bypass in the past. States this does not remind her of that presentation/pain. We'll repeat abdominal films tomorrow. We'll follow. Surgical - Exam Vital Signs Temp Pulse Resp BP Pulse Ox 97.0 F L 75 18 148/91 100 04/17/20 19:55 04/17/20 19:55 04/17/20 19:55 04/17/20 19:55 04/17/20 19:55 Results - Labs 04/17/20 20:16 04/18/20 04:45 Abnormal Lab Results - Last 24 Hours (Table) 04/17/20 04/17/20 04/17/20 Range/Units 20:16 20:16 22:15 Chloride (96-109) mmol/L Anion Gap (4.00-12.00) mmol/L BUN 24 H (7-17) mg/dL Creatinine 1.14 H (0.52-1.04) mg/dL BUN/Creatinine Ratio (12.00-20.00) Ratio Plasma Lactic Acid Costa 0.6 L (0.7-2.0) mmol/L Calcium (8.7-10.3) mg/dL Urine Blood Trace H (Negative) Ur Leukocyte Esterase Large H (Negative) Urine WBC 14 H (0-5) /hpf Urine Mucus Rare H (None) /hpf 04/18/20 Range/Units 04:45 Chloride 110 H (96-109) mmol/L Anion Gap 2.90 L (4.00-12.00) mmol/L BUN (7-17) mg/dL Creatinine (0.52-1.04) mg/dL BUN/Creatinine Ratio 21.11 H (12.00-20.00) Ratio Plasma Lactic Acid Costa (0.7-2.0) mmol/L Calcium 8.3 L (8.7-10.3) mg/dL Urine Blood (Negative) Ur Leukocyte Esterase (Negative) Urine WBC (0-5) /hpf Urine Mucus (None) /hpf Microbiology - Last 24 Hours (Table) 04/17/20 20:16 Urine Culture - Preliminary Urine,Voided Diabetes panel 04/17/20 04/18/20 Range/Units 20:16 04:45 Sodium 138 142 (137-145) mmol/L Potassium 4.3 4.0 (3.5-5.1) mmol/L Chloride 107 110 H (98-107) mmol/L Carbon Dioxide 25 29.1 (22-30) mmol/L BUN 24 H 19.0 (7-17) mg/dL Creatinine 1.14 H 0.9 (0.52-1.04) mg/dL Glucose 84 87 (74-99) mg/dL Calcium 9.4 8.3 L (8.4-10.2) mg/dL AST 22 (14-36) U/L ALT 13 (4-34) U/L Alkaline Phosphatase 77 (38-126) U/L Total Protein 6.8 (6.3-8.2) g/dL Albumin 4.1 (3.5-5.0) g/dL Calcium panel 04/17/20 04/18/20 Range/Units 20:16 04:45 Calcium 9.4 8.3 L (8.4-10.2) mg/dL Albumin 4.1 (3.5-5.0) g/dL Pituitary panel 04/17/20 04/18/20 Range/Units 20:16 04:45 Sodium 138 142 (137-145) mmol/L Potassium 4.3 4.0 (3.5-5.1) mmol/L Chloride 107 110 H (98-107) mmol/L Carbon Dioxide 25 29.1 (22-30) mmol/L BUN 24 H 19.0 (7-17) mg/dL Creatinine 1.14 H 0.9 (0.52-1.04) mg/dL Glucose 84 87 (74-99) mg/dL Calcium 9.4 8.3 L (8.4-10.2) mg/dL Adrenal panel 04/17/20 04/18/20 Range/Units 20:16 04:45 Sodium 138 142 (137-145) mmol/L Potassium 4.3 4.0 (3.5-5.1) mmol/L Chloride 107 110 H (98-107) mmol/L Carbon Dioxide 25 29.1 (22-30) mmol/L BUN 24 H 19.0 (7-17) mg/dL Creatinine 1.14 H 0.9 (0.52-1.04) mg/dL Glucose 84 87 (74-99) mg/dL Calcium 9.4 8.3 L (8.4-10.2) mg/dL Total Bilirubin 0.3 (0.2-1.3) mg/dL AST 22 (14-36) U/L ALT 13 (4-34) U/L Alkaline Phosphatase 77 (38-126) U/L Total Protein 6.8 (6.3-8.2) g/dL Albumin 4.1 (3.5-5.0) g/dL
--- NOTE | 2020-04-18 16:57 | P.PN ---
Subjective Progress Note Date: 04/18/20 (delayed charting seen at 11am) Principal diagnosis: abdominal pain Patient is a 59-year-old female with past medical history of gastric bypass and hernia repair who presented to the emergency department with complaints of right lower quadrant pain. In the ER she underwent an extensive evaluation. CT abdomen and pelvis showed dilated small bowel loops suspicious for ileus versus partial small bowel obstruction. Vital signs were within normal limits and BUN and 24, creatinine 1.14. Remainder blood work was unremarkable. Patient reports she did have a colonoscopy in the past and is not due for repeat colonoscopy at this time. Patient seen and examined at bedside. She reports she had a small bowel movement this morning. She denies any nausea or vomiting. She is feeling slightly hungry. Her abdominal pain is much improved. Objective - Vital Signs Vital signs: Vital Signs Temp 98.2 F 04/18/20 12:09 Pulse 58 L 04/18/20 12:09 Resp 15 04/18/20 12:09 BP 142/90 04/18/20 12:09 Pulse Ox 99 04/18/20 12:09 Intake & Output 04/17/20 04/18/20 04/18/20 18:59 06:59 18:59 Intake Total 0 1360 Balance 0 1360 Weight 79.379 kg Intake: Intake, IV Titration 960 Amount Piperacillin-Tazobactam 3 100 .375 gm In Sodium Chloride 0.9% 100 ml @ 200 mls/hr IVPB ONCE ONE Rx#:[id number] Sodium Chloride 0.9% 1, 260 000 ml @ 130 mls/hr IV . [id number] [facility] Rx#:[id number] Sodium Chloride 0.9% 1, 600 000 ml @ 75 mls/hr IV . [id number] [facility] Rx#:[id number] Oral 0 400 Other: # Voids 2 2 - Exam General: non toxic, no distress, appears at stated age Derm: warm, dry Head: atraumatic, normocephalic, symmetric Eyes: EOMI, no lid lag, anicteric sclera Mouth: no lip lesion, mucus membranes dry Cardiovascular: S1S2 reg, no murmur, positive posterior tibial pulse bilateral, Lungs: CTA bilateral, no rhonchi, no rales , no accessory muscle use Abdominal: soft, tender to palpation right lower quadrant, no guarding, no appreciable organomegaly Ext: no gross muscle atrophy, no edema, no contractures Neuro: CN II-XI grossly intact, no focal neuro deficits Psych: Alert, oriented, appropriate affect - Labs CBC & Chem 7: 04/17/20 20:16 04/18/20 04:45 Labs: Abnormal Lab Results - Last 24 Hours (Table) 04/17/20 04/17/20 04/17/20 Range/Units 20:16 20:16 22:15 Chloride (96-109) mmol/L Anion Gap (4.00-12.00) mmol/L BUN 24 H (7-17) mg/dL Creatinine 1.14 H (0.52-1.04) mg/dL BUN/Creatinine Ratio (12.00-20.00) Ratio Plasma Lactic Acid Costa 0.6 L (0.7-2.0) mmol/L Calcium (8.7-10.3) mg/dL Urine Blood Trace H (Negative) Ur Leukocyte Esterase Large H (Negative) Urine WBC 14 H (0-5) /hpf Urine Mucus Rare H (None) /hpf 04/18/20 Range/Units 04:45 Chloride 110 H (96-109) mmol/L Anion Gap 2.90 L (4.00-12.00) mmol/L BUN (7-17) mg/dL Creatinine (0.52-1.04) mg/dL BUN/Creatinine Ratio 21.11 H (12.00-20.00) Ratio Plasma Lactic Acid Costa (0.7-2.0) mmol/L Calcium 8.3 L (8.7-10.3) mg/dL Urine Blood (Negative) Ur Leukocyte Esterase (Negative) Urine WBC (0-5) /hpf Urine Mucus (None) /hpf Microbiology - Last 24 Hours (Table) 04/17/20 20:16 Urine Culture - Preliminary Urine,Voided Assessment and Plan Assessment: Ileus versus partial small bowel obstruction -Full liquid diet -Pain control -MiraLAX 1 to encourage larger bowel movement -Await surgery recommendations Acute kidney injury secondary to dehydration -Continue with IV fluids -Avoid additional nephrotoxic agent -Appears significantly improved from prior DVT prophylaxis: SCDs Discussed with: patient, nursing Anticipated discharge: in AM Anticipated discharge place: home A total of 35 minutes was spent on the care of this complex patient more than 50% of the time was spent in counseling and care coordination.
[2020-04-19] MEDS ORDERED: ACETAMINOPHEN TAB 325 MG TAB PO PRN (06:25)
[2020-04-19] MEDS ORDERED: polyethylene glycoL 3350 17 GM POWD.PACK PO STA (08:52)
--- NOTE | 2020-04-19 08:53 | XR ---
EXAMINATION TYPE: XR abdomen 2V DATE OF EXAM: 04/19/2020 CLINICAL DATA: 59 year-old female abdominal pain, [facility] COMPARISON: CT 04/17/2020 FINDINGS: Lung bases are clear. Post surgical change below the GE junction and also in the left mid abdomen likely relating to prior Erinn-en-Y gastric bypass. No evidence for free intraperitoneal air. Solitary mildly dilated small bowel loop in the left mid abdomen measures 3.2 cm. No differential air -fluid levels. Some small air-fluid levels are present in the right side of the colon. Scattered air throughout the colon extending distally to the rectum. Left-sided pelvic phleboliths. Cholecystectomy clips. IMPRESSION: Air seen throughout the colon. Some liquid stool noted in the right side of the colon. Mildly dilated small bowel loop in the left side of the abdomen measuring 3.2 cm. Overall nonobstructive bowel gas pattern. Consider a generalized ileus or enteritis.
--- NOTE | 2020-04-19 11:12 | P.PN ---
Subjective Progress Note Date: 04/19/20 CHIEF COMPLAINT: Abdominal pain HISTORY OF PRESENT ILLNESS: Patient is being followed for ileus versus partial small bowel obstruction. Patient is In the bathroom brushing her teeth. She reports that she is feeling better. She did have a small bowel movement yesterday. She is passing gas. She does report some minimal pain and rated about a 1 out of 10. She did receive a dose of MiraLAX yesterday and today. She denies any nausea or vomiting. And she is currently on a full liquid diet. Afebrile Abdominal x-ray air seen throughout the colon. Some liquid stool noted in the right side of the colon. Mildly dilated small bowel loops in the left side of the abdomen measuring 3.2 cm. Overall nonobstructive bowel gas pattern. Considered a generalized ileus or enteritis PHYSICAL EXAM: VITAL SIGNS: Reviewed. GENERAL: Well-developed in no acute distress. HEENT: No sclera icterus. Extraocular movements grossly intact. Moist buccal mucosa. Head is atraumatic, normocephalic. ABDOMEN: Soft. Nondistended. Nontender. NEUROLOGIC: Alert and oriented. Cranial nerves II through XII grossly intact. ASSESSMENT: 1. Ileus 2. History of Torsion of the bowel secondary to hernia with surgical repair [place] [facility] [place] 3. History of gastric bypass 2008 4. GERD PLAN: -Recommend conservative management -Continue full liquid diet -Encourage patient to ambulate Physician Director Of Curriculum note has been reviewed by physician. Signing provider agrees with the documented findings, assessment, and plan of care. Objective - Vital Signs Vital signs: Vital Signs Temp 97.5 F L 04/19/20 05:00 Pulse 66 04/19/20 05:00 Resp 16 04/19/20 05:00 BP 152/79 04/19/20 05:00 Pulse Ox 96 04/19/20 05:00 Intake & Output 04/18/20 04/19/20 04/19/20 18:59 06:59 18:59 Intake Total 1360 1150 Balance 1360 1150 Intake: Intake, IV Titration 960 750 Amount Piperacillin-Tazobactam 3 100 .375 gm In Sodium Chloride 0.9% 100 ml @ 200 mls/hr IVPB ONCE ONE Rx#:[id number] Sodium Chloride 0.9% 1, 260 000 ml @ 130 mls/hr IV . Q7H42M [facility] Rx#:[id number] Sodium Chloride 0.9% 1, 600 750 000 ml @ 75 mls/hr IV . [id number] [facility] Rx#:[id number] Oral 400 400 Other: Voiding Method Toilet # Voids 2 3 - Labs CBC & Chem 7: 04/17/20 20:16 04/18/20 04:45 Labs: Microbiology - Last 24 Hours (Table) 04/17/20 20:16 Urine Culture - Final Urine,Voided Strep agalactiae - (group b)
[2020-04-19] MEDS: SODIUM CHLORIDE 0.9% 1,000 ML IV SCH (11:51)
--- NOTE | 2020-04-19 12:24 | P.PN ---
Subjective Progress Note Date: 04/19/20 (delayed charting seen at 1015) Principal diagnosis: abdominal pain Patient is a 59-year-old female with past medical history of gastric bypass and hernia repair who presented to the emergency department with complaints of right lower quadrant pain. In the ER she underwent an extensive evaluation. CT abdomen and pelvis showed dilated small bowel loops suspicious for ileus versus partial small bowel obstruction. Vital signs were within normal limits and BUN and 24, creatinine 1.14. Remainder blood work was unremarkable. Patient reports she did have a colonoscopy in the past and is not due for repeat colonoscopy at this time. She he had 2 small bowel movements but repeat x-ray showed continued illeus. She was tolerating a full liquid diet. Patient seen and examined at bedside. She reports 2 small bowel movements. No nausea. Tolerating her diet well. Denies dysuria/fevers/urinary frequency Objective - Vital Signs Vital signs: Vital Signs Temp 97.8 F 04/19/20 11:57 Pulse 61 04/19/20 11:57 Resp 16 04/19/20 11:57 BP 125/80 04/19/20 11:57 Pulse Ox 95 04/19/20 11:57 Intake & Output 04/18/20 04/19/20 04/19/20 18:59 06:59 18:59 Intake Total 1360 1150 Balance 1360 1150 Intake: Intake, IV Titration 960 750 Amount Piperacillin-Tazobactam 3 100 .375 gm In Sodium Chloride 0.9% 100 ml @ 200 mls/hr IVPB ONCE ONE Rx#:[id number] Sodium Chloride 0.9% 1, 260 000 ml @ 130 mls/hr IV . Q7H42M [facility] Rx#:[id number] Sodium Chloride 0.9% 1, 600 750 000 ml @ 75 mls/hr IV . [id number] [facility] Rx#:[id number] Oral 400 400 Other: Voiding Method Toilet # Voids 2 3 - Exam General: non toxic, no distress, appears at stated age Derm: warm, dry Head: atraumatic, normocephalic, symmetric Eyes: EOMI, no lid lag, anicteric sclera Mouth: no lip lesion, mucus membranes dry Cardiovascular: S1S2 reg, no murmur, positive posterior tibial pulse bilateral, Lungs: CTA bilateral, no rhonchi, no rales , no accessory muscle use Abdominal: soft, tender to palpation suprapubic, no guarding, no appreciable organomegaly Ext: no gross muscle atrophy, no edema, no contractures Neuro: CN II-XI grossly intact, no focal neuro deficits Psych: Alert, oriented, appropriate affect - Labs CBC & Chem 7: 04/17/20 20:16 04/18/20 04:45 Labs: Microbiology - Last 24 Hours (Table) 04/17/20 20:16 Urine Culture - Final Urine,Voided Strep agalactiae - (group b) Assessment and Plan Assessment: Ileus -Full liquid diet -Pain control -MiraLAX again today -surgery recs appreciated Depression - cymbalta, vistaril Acute kidney injury secondary to dehydration, resolved - stop IVF DVT prophylaxis: SCDs Discussed with: patient, nursing Anticipated discharge: in AM Anticipated discharge place: home A total of 35 minutes was spent on the care of this complex patient more than 50% of the time was spent in counseling and care coordination.
[2020-04-19] MEDS: PANTOPRAZOLE 40 MG TABLET PO SCH (12:25)
[2020-04-19] MEDS: DULoxetine HCL 60 MG CAPSULE.DR PO SCH (12:25)
[2020-04-19] MEDS: hydrOXYzine pamoate 25 MG CAP PO SCH ×2 (12:25→20:42)
--- NOTE | 2020-04-19 13:23 | P.PN ---
<CarigrantGiselle - Last Filed: 04/19/20 13:20> Subjective Progress Note Date: 04/19/20 CHIEF COMPLAINT: Abdominal pain HISTORY OF PRESENT ILLNESS: Patient is being followed for ileus versus partial small bowel obstruction. Patient is In the bathroom brushing her teeth. She reports that she is feeling better. She did have a small bowel movement yesterday. She is passing gas. She does report some minimal pain and rated about a 1 out of 10. She did receive a dose of MiraLAX yesterday and today. She denies any nausea or vomiting. And she is currently on a full liquid diet. Afebrile Abdominal x-ray air seen throughout the colon. Some liquid stool noted in the right side of the colon. Mildly dilated small bowel loops in the left side of the abdomen measuring 3.2 cm. Overall nonobstructive bowel gas pattern. Considered a generalized ileus or enteritis PHYSICAL EXAM: VITAL SIGNS: Reviewed. GENERAL: Well-developed in no acute distress. HEENT: No sclera icterus. Extraocular movements grossly intact. Moist buccal mucosa. Head is atraumatic, normocephalic. ABDOMEN: Soft. Nondistended. Nontender. NEUROLOGIC: Alert and oriented. Cranial nerves II through XII grossly intact. ASSESSMENT: 1. Ileus versus partial small bowel obstruction 2. History of Torsion of the bowel secondary to hernia with surgical repair of hernia at [facility] [place] 3. History of gastric bypass 2008 4. GERD PLAN: -Recommend conservative management -Continue full liquid diet -Encourage patient to ambulate -Anticipate discharge tomorrow Physician Healthcare Insurance Sales Agent note has been reviewed by physician. Signing provider agrees with the documented findings, assessment, and plan of care. Objective - Vital Signs Vital signs: Vital Signs Temp 97.8 F 04/19/20 11:57 Pulse 61 04/19/20 11:57 Resp 16 04/19/20 11:57 BP 125/80 04/19/20 11:57 Pulse Ox 95 04/19/20 11:57 Intake & Output 04/18/20 04/19/20 04/19/20 18:59 06:59 18:59 Intake Total 1360 1150 Balance 1360 1150 Intake: Intake, IV Titration 960 750 Amount Piperacillin-Tazobactam 3 100 .375 gm In Sodium Chloride 0.9% 100 ml @ 200 mls/hr IVPB ONCE ONE Rx#:[id number] Sodium Chloride 0.9% 1, 260 000 ml @ 130 mls/hr IV . Q7H42M [facility] Rx#:[id number] Sodium Chloride 0.9% 1, 600 750 000 ml @ 75 mls/hr IV . [id number] [facility] Rx#:[id number] Oral 400 400 Other: Voiding Method Toilet # Voids 2 3 - Labs CBC & Chem 7: 04/17/20 20:16 04/18/20 04:45 Labs: Microbiology - Last 24 Hours (Table) 04/17/20 20:16 Urine Culture - Final Urine,Voided Strep agalactiae - (group b) <Mathew Williamson - Last Filed: 04/19/20 13:50> Subjective Patient continues to do well. Still states she has had virtually no pain since her admission. Tolerating liquid diet. X-rays showed no definite obstruction pattern. Patient did have another small bowel movement. Denies nausea or vomiting. Would advance diet at this time. May discharge if tolerates. Outpatient follow-up with her bariatric surgeon was advised to the patient. Objective - Vital Signs Vital signs: Vital Signs Temp 97.8 F 04/19/20 11:57 Pulse 61 04/19/20 11:57 Resp 16 04/19/20 11:57 BP 125/80 04/19/20 11:57 Pulse Ox 95 04/19/20 11:57 Intake & Output 04/18/20 04/19/20 04/19/20 18:59 06:59 18:59 Intake Total 1360 1150 Balance 1360 1150 Intake: Intake, IV Titration 960 750 Amount Piperacillin-Tazobactam 3 100 .375 gm In Sodium Chloride 0.9% 100 ml @ 200 mls/hr IVPB ONCE ONE Rx#:[id number] Sodium Chloride 0.9% 1, 260 000 ml @ 130 mls/hr IV . Q7H42M [facility] Rx#:[id number] Sodium Chloride 0.9% 1, 600 750 000 ml @ 75 mls/hr IV . [id number] [facility] Rx#:[id number] Oral 400 400 Other: Voiding Method Toilet # Voids 2 3 - Labs CBC & Chem 7: 04/17/20 20:16 04/18/20 04:45 Labs: Microbiology - Last 24 Hours (Table) 04/17/20 20:16 Urine Culture - Final Urine,Voided Strep agalactiae - (group b)
[2020-04-20 05:17] VITALS: BP 146/87; PULSE 61; RESP 16; TEMP 97.6
[2020-04-20] MEDS: DULoxetine HCL 60 MG CAPSULE.DR PO SCH (07:41)
[2020-04-20] MEDS: hydrOXYzine pamoate 25 MG CAP PO SCH (07:41)
[2020-04-20] MEDS: PANTOPRAZOLE 40 MG TABLET PO SCH (07:42)
--- NOTE | 2020-04-20 12:23 | P.PN ---
<Giselle Lang - Last Filed: 04/20/20 12:18> Subjective Progress Note Date: 04/20/20 CHIEF COMPLAINT: Abdominal pain HISTORY OF PRESENT ILLNESS: Patient is being followed for ileus versus partial small bowel obstruction. Patient as shown improvement. Patient denies any pain. Denies any nausea or vomiting. She is tolerating Dysphagia chopped diet. She reports passing gas. Her last bowel movement was 2 days ago. No bowel movement reported for yesterday. She is afebrile. Abdominal x-ray air seen throughout the colon. Some liquid stool noted in the right side of the colon. Mildly dilated small bowel loops in the left side of the abdomen measuring 3.2 cm. Overall nonobstructive bowel gas pattern. Considered a generalized ileus or enteritis PHYSICAL EXAM: VITAL SIGNS: Reviewed. GENERAL: Well-developed in no acute distress. HEENT: No sclera icterus. Extraocular movements grossly intact. Moist buccal mucosa. Head is atraumatic, normocephalic. ABDOMEN: Soft. Nondistended. Nontender. NEUROLOGIC: Alert and oriented. Cranial nerves II through XII grossly intact. ASSESSMENT: 1. Ileus 2. History of Torsion of the bowel secondary to hernia with surgical repair of [place] [facility] 3. History of gastric bypass 2008 4. GERD PLAN: -Patient is surgically stable for discharge -Recommend outpatient follow-up with her bariatric surgeon Physician Paperhanger Apprentice note has been reviewed by physician. Signing provider agrees with the documented findings, assessment, and plan of care. Objective - Vital Signs Vital signs: Vital Signs Temp 97.6 F 04/20/20 05:00 Pulse 61 04/20/20 08:00 Resp 16 04/20/20 08:00 BP 146/87 04/20/20 05:00 Pulse Ox 98 04/20/20 05:00 Intake & Output 04/19/20 04/20/20 04/20/20 18:59 06:59 18:59 Intake Total 825 Balance 825 Intake: Intake, IV Titration 225 Amount Sodium Chloride 0.9% 1, 225 000 ml @ 75 mls/hr IV . [id number] [facility] Rx#:[id number] Oral 600 Other: Voiding Method Toilet Toilet # Voids 2 1 1 - Labs CBC & Chem 7: 04/17/20 20:16 04/18/20 04:45 <Mathew Williamson Last Filed: 04/20/20 14:03> Subjective As above. Patient doing well today. Tolerating diet. May discharge Objective - Vital Signs Vital signs: Vital Signs Temp 97.6 F 04/20/20 05:00 Pulse 61 04/20/20 08:00 Resp 16 04/20/20 08:00 BP 146/87 04/20/20 05:00 Pulse Ox 98 04/20/20 05:00 Intake & Output 04/19/20 04/20/20 04/20/20 18:59 06:59 18:59 Intake Total 825 Balance 825 Intake: Intake, IV Titration 225 Amount Sodium Chloride 0.9% 1, 225 000 ml @ 75 mls/hr IV . [id number] [facility] Rx#:[id number] Oral 600 Other: Voiding Method Toilet Toilet # Voids 2 1 1 - Labs CBC & Chem 7: 04/17/20 20:16 04/18/20 04:45
--- NOTE | 2020-04-20 15:11 | P.DS ---
Providers Date of admission: 04/17/20 23:00 Expected date of discharge: 04/20/20 Attending physician: Babs Hobbs MD Consults: 04/18/20 10:06 Consult Physician Routine Consulting Provider: Mathew Williamson Consult Reason/Comments: PSBO Do you want consulting provider notified?: Already Contacted Primary care physician: Physician Nonstaff Hospital Course: Discharge Diagnosis: Ileus Depression Acute kidney injury secondary to dehydration Hospital Course: Patient is a 59-year-old female with past medical history of gastric bypass and hernia repair who presented to the emergency department with complaints of right lower quadrant pain. In the ER she underwent an extensive evaluation. CT abdomen and pelvis showed dilated small bowel loops suspicious for ileus versus partial small bowel obstruction. Vital signs were within normal limits and BUN and 24, creatinine 1.14. Remainder blood work was unremarkable. Patient reports she did have a colonoscopy in the past and is not due for repeat colonoscopy at this time. She he had 2 small bowel movements but repeat x-ray showed continued illeus. She was tolerating a full liquid diet. She had an additional 2 bowel movements. She tolerated regular diet. She had good bowel sounds was determined stable for discharge. She'll follow up with her primary care provider as well as her bariatric surgeon. She will use [id number] MiraLAX to ensure she has a bowel movement every 48 hours. The remainder of her medications remain unchanged. Patient seen and examined at bedside. No chest pain, shortness breath, nausea, or vomiting. No bowel movement today but tolerated her diet well. States she does not typically have bowel movements daily. All abdominal [pain resolved. Vital signs reviewed and stable. General: non toxic, no distress, appears at stated age Derm: warm, dry Head: atraumatic, normocephalic, symmetric Eyes: EOMI, no lid lag, anicteric sclera Mouth: no lip lesion, mucus membranes moist Cardiovascular: S1S2 reg, no murmur, positive posterior tibial pulse bilateral, Lungs: CTA bilateral, no rhonchi, no rales , no accessory muscle use Abdominal: soft, nontender to palpation, no guarding, no appreciable organomegaly Ext: no gross muscle atrophy, no edema, no contractures Neuro: CN II-XI grossly intact, no focal neuro deficits Psych: Alert, oriented, appropriate affect A total of 35 minutes of time were spent preparing this complex discharge summary . Patient Condition at Discharge: Stable Plan - Discharge Summary New Discharge Prescriptions: New polyethylene glycoL 3350 [Miralax] 17 gm PO DAILY #1 bottle Continue Omeprazole Magnesium [PriLOSEC OTC] 20 mg PO DAILY hydrOXYzine pamoate [Vistaril] 25 mg PO BID DULoxetine HCL [Cymbalta] 60 mg PO DAILY Discharge Medication List Omeprazole Magnesium [PriLOSEC OTC] 20 mg PO DAILY 02/17/18 [History] DULoxetine HCL [Cymbalta] 60 mg PO DAILY 04/17/20 [History] hydrOXYzine pamoate [Vistaril] 25 mg PO BID 04/17/20 [History] polyethylene glycoL 3350 [Miralax] 17 gm PO DAILY #1 bottle 04/20/20 [Rx] Follow up Appointment(s)/Referral(s): Nonstaff,Physician [Primary Care Provider] - 1-2 days Patient Instructions/Handouts: Polyethylene Glycol 3350 (By mouth), Bowel Obstruction (DC) Activity/Diet/Wound Care/Special Instructions: Activity: as tolerated Diet: regular Special Instructions: goal is a bowel movement every 48 hours Follow-up with your gastric bypass surgeon Discharge Disposition: HOME SELF-CARE
== END 2020-04-20 14:13 | disposition home or self-care (01) | DRG 389 ==
LOC: EC 19:53 → 6NMEDSUR 23:00
PROVIDERS: ADMIT Internal Medicine; ATTEND Internal Medicine
DX: K56.7 Ileus, unspecified (principal); N17.9 Acute kidney failure, unspecified; K56.600 Partial intestinal obstruction, unspecified as to cause; K76.89 Other specified diseases of liver; E86.0 Dehydration; F32.9 Major depressive disorder, single episode, unspecified; K21.9 Gastro-esophageal reflux disease without esophagitis; Z79.899 Other long term (current) drug therapy; Z98.84 Bariatric surgery status; Z98.51 Tubal ligation status; Z98.890 Other specified postprocedural states; Z87.19 Personal history of other diseases of the digestive system
CPT/HCPCS: 36415; 74019; 74177; 80048; 80053; 81001; 82150; 83605; 83690; 85025; 87086; 96361; 96374; 99285

== ENCOUNTER → 2020-05-16 | Outpatient (CLI) | payer BC ==
[2020-05-16 14:18] VITALS: BP 121/80; PULSE 77; RESP 18; TEMP 98.1
--- NOTE | 2020-05-16 15:04 | P.HPBAR ---
Bariatric H&P - History & Physicial H&P Date: 05/16/20 History & Physicial: Visit/CC: initial visit Patient initial contact: Initial weight: Initial weight in pounds: Height: 5 ft 5 in Initial BMI: Last weight: Current weight: 83.461 kg Current weight in pounds: Current BMI: [place] body weight (based on NIH guidelines): Excess body weight loss: The patient is a 59 year-old F who presents for Bariatric Assessment. Surgery was done in 2008 at [facility]. She developed hernia and had repairs. She is a patient of Dr. Hernandez. She had a gastric bypass. She has not had a follow after 1 year of her procedure. She reports new problems with twisted intestine in [facility] Dr. Ortega for small bowel obstruction 1 year ago. She had an internal hernia. She had a tummy tuck. Highest 303 pounds. Lowest 147 pounds. She had hernia repair. She lost 80 pounds with Keto when she gained weight to 230 pounds. She presents today for [facility] care. She works at a intermediate. She was 175 pounds and had gained 10 pounds to 184 pounds. She reports abdominal pain of the epigastrium. She developed GERD and heartburn prior to her surgery. She takes Prilosec not daily. She had been seeing Dr. Williamson. She reports constipation. She reports vomiting. PLAN: 1. Follow-up CT scan 2. Needs full bariatric labs. 3. Bariatric dietitian advised. 4. UGI with small bowel follow throug 5. EGD advised 6. May need diagnostic lap STUDIES: CT reviewed with dilated stomach pouch Past Medical History Past Medical History: GERD/Reflux, Thyroid Disorder History of Any Multi-Drug Resistant Organisms: None Reported Past Surgical History: Bariatric Surgery, Bowel Resection, Hernia Repair, Joint Replacement, Orthopedic Surgery, Tubal Ligation Additional Past Surgical History / Comment(s): gastric bypass 2008; hand surgery 2001; 2010 abdominoplasty; caarct surgery bilat 2019 Past Anesthesia/Blood Transfusion Reactions: No Reported Reaction Past Psychological History: Anxiety, Depression Smoking Status: Never smoker Past Alcohol Use History: None Reported Past Drug Use History: None Reported Surgical - Exam Vital Signs Temp Pulse Resp BP 98.1 F 77 18 121/80 05/16/20 14:10 05/16/20 14:10 05/16/20 14:10 05/16/20 14:10 Bariatric Checklist Checklist: Plan: Checklist: EGD: 1. Hiatal hernia: 2. H. Pylori: HgbA1c: Vitamin D: Smoking: Never smoker Primary care physician referral: Dr. Renny Boyd ([place]) Psychiatry clearance: Cardiology clearance: Sleep study: Diet journal: VTE risk score: VTE risk level: Rehab needs at discharge:
[2020-05-16 16:22] LABS: HCT 35.4 % (34.0-46.0); HGB 10.9 gm/dL (11.4-16.0); Hypochromasia Slight; MCH 26.7 pg (25.0-35.0); MCHC 30.7 g/dL (31.0-37.0); MCV 86.7 fL (80.0-100.0); Mean Platelet Volume 7.3; Platelet Count 256 k/uL (150-450); RBC 4.09 m/uL (3.80-5.40); RDW 14.3 % (11.5-15.5); WBC 5.6 k/uL (3.8-10.6)
[2020-05-17 00:11] LABS: % Iron Saturation 9.93 (12.00-45.00); African American GFR (CKD) 81.7 (60.0-200.0); Albumin 4.3 g/dL (3.80-4.90); Albumin/Globulin Ratio 2.15 (1.60-3.17); Anion Gap 7.1 mmol/L (4.00-12.00); BUN/Creat Ratio 18.89 Ratio (12.00-20.00); Calcium 9.2 mg/dL (8.7-10.3); Carbon Dioxide 26.9 mmol/L (21.6-31.8); Chol/HDL Ratio 2.05; Non-African American GFR(CKD) 70.5 (60.0-200.0); Phosphorus 3.3 mg/dL (2.4-5.1); Potassium 4.1 mmol/L (3.5-5.5); Total Bilirubin 0.4 mg/dL (0.3-1.2); Total Protein 6.3 g/dL (6.2-8.2)
[2020-05-17 00:22] LABS: Ferritin 6.9 ng/mL (10.0-291.0); Folate, Serum 11.7 ng/mL
[2020-05-17 03:03] LABS: Hemoglobin A1C 5.8 % (4.0-6.0)
[2020-05-17 03:29] LABS: INR 0.96 (0.90-1.11); Prothrombin Time 10.4 sec (9.9-11.9)
[2020-05-17 03:30] LABS: Partial Thromboplastin Time 24.5 sec (23.5-31.0)
[2020-05-18 13:53] LABS: Zinc, Serum 69 ug/dL (60-130)
[2020-05-19 19:05] LABS: Selenium 139 mcg/L (63-160)
[2020-05-21 06:30] LABS: Vit B1(Thiamine) 54 ug/L (38-122)
[2020-05-21 06:48] LABS: Vitamin A 45 ug/dL (38-106)
== END | disposition home or self-care (01) ==
LOC: BARWHC3 13:54
PROVIDERS: ATTEND Surgery Plastic and Reconstructive Surgery
DX: Z48.815 Encounter for surgical aftercare following surgery on the digestive system (principal); K46.9 Unspecified abdominal hernia without obstruction or gangrene; K21.9 Gastro-esophageal reflux disease without esophagitis; R10.13 Epigastric pain; R11.10 Vomiting, unspecified; E66.01 Morbid (severe) obesity due to excess calories; E89.1 Postprocedural hypoinsulinemia; D50.8 Other iron deficiency anemias; E55.9 Vitamin D deficiency, unspecified; K74.1 Hepatic sclerosis; N19 Unspecified kidney failure; K50.90 Crohn's disease, unspecified, without complications; K90.89 Other intestinal malabsorption; Z68.30 Body mass index [BMI] 30.0-30.9, adult; Z98.84 Bariatric surgery status; Z98.890 Other specified postprocedural states
CPT/HCPCS: 80053; 80061; 82306; 82525; 82607; 82728; 82746; 83036; 83540; 83550; 83735; 83970; 84100; 84134; 84255; 84425; 84443; 84590; 84630; 85027; 85610; 85730; 99211

== ENCOUNTER → 2020-06-06 | Outpatient (CLI) | payer BC ==
--- NOTE | 2020-06-06 11:55 | FL ---
EXAMINATION TYPE: FL barium swallow w SBFT DATE OF EXAM: 06/06/2020 CLINICAL HISTORY: History of gastric bypass surgery 2009 with new worsening vomiting reflux and epiga stric pain, history of antireflux medication which is not working as well as as well as in the past p er patient. TECHNIQUE: Single contrast esophagram and upper GI study. A single contrast small bowel follow throu gh is performed utilizing barium. 42 seconds of fluoro time and 70 images obtained. COMPARISON: CT abdomen and pelvis April 17, 2020 FINDINGS: Data Security Administrator image of the abdomen shows surgical changes epigastric region from gastric bypass pr ocedure. Cholecystectomy clips are redemonstrated. Surgical sutures right midabdomen not clearly seen on recent prior CT. Overall nonobstructive bowel gas pattern. Patient drank contrast without difficulty or delay. Satisfactory motility and emptying into the stoma ch remnant is appreciated. No fixed hiatal hernia. No stricture or intraluminal mass. Stomach remnant shows satisfactory emptying into the efferent anastomotic small bowel loop. Mild dist al gastroesophageal reflux seen during real-time performance of study. The small bowel study shows normal transit to the colon in less than 60 minutes. There is a normal m ucosal fold pattern throughout the small bowel. There is no evidence of any stricture or filling def ect noted. The terminal ileum is spotted and appears unremarkable. Incidental note is made of increasing advanced degenerative change in the left hip more prominent ash n the opposite right hip. IMPRESSION: Mild gastroesophageal reflux. Surgical changes from gastric bypass procedure demonstrated and thought Satisfactory otherwise unremarkable study.
== END | disposition home or self-care (01) ==
LOC: RADFLMAIN 09:00
PROVIDERS: ATTEND Surgery Plastic and Reconstructive Surgery
DX: K21.9 Gastro-esophageal reflux disease without esophagitis (principal); Z98.84 Bariatric surgery status
CPT/HCPCS: 74220

== ENCOUNTER → 2020-08-01 | Outpatient (CLI) | payer BC ==
--- NOTE | 2020-08-01 11:34 | CT ---
EXAMINATION TYPE: CT abdomen pelvis w con DATE OF EXAM: 08/01/2020 COMPARISON: CT 04/17/2020 HISTORY: Diverticulitis CT DLP: 1385 mGycm Automated exposure control for dose reduction was used. TECHNIQUE: Helical acquisition of images from the lung bases through the pelvis have been completed. CONTRAST: Performed with Oral Contrast and with IV Contrast, patient injected with 100 ml mL of Isovue 300. FINDINGS: Small right inguinal hernia contains fat. Postop changes are noted to the stomach, there ar e areas of gastric wall thickening, there is a thickened appearance to the gastric cardia posteriorly , difficult to exclude ulcer, axial image #22 LUNG BASES: No significant abnormality is appreciated. AORTA: No significant abnormality is appreciated. LIVER/GB: No significant interval change is appreciated, multiple cystic foci are scattered within th e liver, patient is post cholecystectomy and there is dilation of the intra and extrahepatic biliary ducts. PANCREAS: No significant abnormality is seen. SPLEEN: No significant abnormality is seen. ADRENALS: No significant abnormality is seen. KIDNEYS: No significant abnormality is seen. REPRODUCTIVE ORGANS: No significant abnormality is seen BOWEL: No significant interval change is seen, postop appearance is again seen. FREE AIR: No Free Air visible. ASCITES: None visible. PELVIC ADENOPATHY: None visualized. RETROPERITONEAL ADENOPATHY: No Retroperitoneal Adenopathy visible. URINARY BLADDER: No significant abnormality is seen. OSSEOUS STRUCTURES: No significant abnormality is seen. IMPRESSION: POSTOP CHANGES AND ABNORMAL THICKENING IN THE UPPER STOMACH DESCRIBED, CORRELATE APPEARANCE WITH Itzel CARTY'S SURGICAL HISTORY.
== END | disposition home or self-care (01) ==
LOC: RADCTMAIN 09:01
PROVIDERS: ATTEND Surgery Plastic and Reconstructive Surgery
DX: K31.89 Other diseases of stomach and duodenum (principal); Z98.890 Other specified postprocedural states
CPT/HCPCS: 82565; 84520; 74177; 36415; Q9967

== ENCOUNTER 2020-08-13 06:53 | Day surgery (SDC) | payer BC ==
[2020-08-09 13:20] VITALS: BMI 31.6
--- NOTE | 2020-08-13 06:12 | P.GSHP ---
History of Present Illness H&P Date: 08/13/20 CHIEF COMPLAINT: GERD HISTORY OF PRESENT ILLNESS: The patient is a 59-year-old female who presents reports gastroesophageal reflux disease. Upper endoscopy was offered for further evaluation and management. PAST MEDICAL HISTORY: Please see list. PAST SURGICAL HISTORY: Please see list. MEDICATIONS: Please see list. ALLERGIES: Please see list. SOCIAL HISTORY: No illicit drug use FAMILY HISTORY: No reports of Crohn disease or ulcerative colitis. REVIEW OF ORGAN SYSTEMS: CONSTITUTIONAL: No reports of fevers or chills. GI: Denies any blood in stools or constipation. PHYSICAL EXAM: VITAL SIGNS: Stable GENERAL: Well-developed and pleasant in no acute distress. HEENT: No scleral icterus. Extraocular movements grossly intact. Moist buccal mucosa. NECK: Supple without lymphadenopathy. CHEST: Unlabored respirations. Equal bilateral excursions. CARDIOVASCULAR: Regular rate and rhythm. Distal 2+ pulses. ABDOMEN: Soft, nondistended. MUSCULOSKELETAL: No clubbing, cyanosis, or edema. ASSESSMENT: 1. Gastroesophageal reflux disease PLAN: 1. Recommend proceeding with an upper endoscopy Past Medical History Past Medical History: GERD/Reflux, Osteoarthritis (OA), Pulmonary Embolus (PE) Additional Past Medical History / Comment(s): past high bp-no current problems, hiatal hernia, frequent vomiting since gastric bypass surgery, irregular bowel movements/constipation on and off, "iron is low", History of Any Multi-Drug Resistant Organisms: None Reported Past Surgical History: Bariatric Surgery, Bowel Resection, Cholecystectomy, Hernia Repair, Orthopedic Surgery, Tubal Ligation Additional Past Surgical History / Comment(s): gastric bypass/ hiatal hernia repair and cholecystectomy then had bowel surgery couple days later for twisted bowel, rt hand surgery-fingers severed/reattached(pointer and little finger unsuccessful reattachment); abdominoplasty; brianna cataract surgery, Past Anesthesia/Blood Transfusion Reactions: No Reported Reaction Smoking Status: Former smoker - Past Family History Mother Family Medical History: Cancer Additional Family Medical History / Comment(s): colon Medications and Allergies Home Medications Medication Instructions Recorded Confirmed Type Multivitamins, Thera [Multivitamin 1 tab PO DAILY 05/16/20 08/09/20 History (formulary)] Omeprazole Magnesium [PriLOSEC OTC] 20 mg PO DAILY 05/16/20 08/09/20 History Citalopram Hydrobromide 10 mg PO 199908/09/20 08/09/20 History [Citalopram HBr] Ergocalciferol [Vitamin D2 (1250 50,000 unit PO WEEKLY 08/09/20 08/09/20 History Mcg = 08120 Iu)] Inulin/Chromium Picolinate [Fiber 2 each PO DAILY 08/09/20 08/09/20 History Gummies Chew] polyethylene glycoL 3350 [Miralax] 17 gm PO DAILY PRN 08/09/20 08/09/20 History Allergies Allergy/AdvReac Type Severity Reaction Status Date / Time No Known Allergies Allergy Verified 08/09/20 13:06
[~2020-08-13 06:53] MED LIST: LACTATED RINGERS 1,000 ML IV SCH; LIDOCAINE 1% (10MG/ML) FOR IV START INTRADERMA PRN
[2020-08-13] MEDS ORDERED: LACTATED RINGERS 1,000 ML IV ONE ×2 (07:16)
[2020-08-13 07:33] VITALS: RESP 16; TEMP 98.1
[2020-08-13] MEDS ORDERED: LIDOCAINE 1% INJ 10MG/ML (20 ML MDV) ONE (07:55)
[2020-08-13] MEDS ORDERED: PROPOFOL 10 MG/ML 20 ML VIAL IV ONE (07:55)
--- NOTE | 2020-08-13 08:14 | P.PCN ---
Date of Procedure: 08/13/20 Description of Procedure: PREOPERATIVE DIAGNOSIS: Dysphagia. Nausea with vomiting. Gastroesophageal reflux disease POSTOPERATIVE DIAGNOSIS: Dysphagia. Nausea with vomiting. Gastroesophageal reflux disease Gastrojejunal stricture without chronic ulcer without perforation OPERATION: Esophagogastrojejunoscopy with balloon dilatation from 9.5 to 18 mm. SURGEON: Nikkie Nava MD ANESTHESIA: MAC. INDICATIONS: The patient is a 59-year-old female who presents with gastroesophageal reflux disease, dysphagia, including nausea and vomiting. Benefits and risks of the procedure were described. Informed consent was obtained. DESCRIPTION: The patient was brought into the endoscopy suite and laid in the left lateral decubitus position. After a timeout was confirmed, the procedure was initiated. An Olympus gastroscope was passed along the posterior oropharynx down to the distal esophagus where the squamocolumnar junction was unremarkable. The gastric pouch was entered. A gastrojejunal stricture of 9.5 mm was found as the adult gastroscope was 10 mm in size. A [employer] balloon dilator was placed through the scope. Final insufflation up to 18 mm was performed with a total of 2 minutes. The scope was advanced up to 60 cm from the incisors into the Erinn limb. The mucosa of the gastrojejunal anastomosis was intact. No chronic gastrojejunal marginal ulcer was encountered. No full-thickness injury was encountered. The GI tract was desufflated. The patient tolerated the procedure well. FINDINGS: Squamocolumnar junction unremarkable at 37 cm. Stricture of approximately 9.5 mm encountered. Gastric pouch 3 cm Sliding hiatal hernia, 1 cm LA grade B erosive esophagitis No chronic gastrojejunal ulceration encountered. Successful balloon dilatation to 18 mm. RECOMMENDATIONS: Liquid diet. Repeat upper endoscopy in 4 weeks Plan - Discharge Summary New Discharge Prescriptions: New Omeprazole [PriLOSEC] 40 mg PO DAILY #90 cap Continue Multivitamins, Thera [Multivitamin (formulary)] 1 tab PO DAILY Citalopram Hydrobromide [Citalopram HBr] 10 mg PO 2000 Inulin/Chromium Picolinate [Fiber Gummies Chew] 2 each PO DAILY polyethylene glycoL 3350 [Miralax] 17 gm PO DAILY PRN PRN Reason: Constipation Ergocalciferol [Vitamin D2 (1250 Mcg = 57037 Iu)] 50,000 unit PO WEEKLY Discontinued Omeprazole Magnesium [PriLOSEC OTC] 20 mg PO DAILY Discharge Medication List Multivitamins, Thera [Multivitamin (formulary)] 1 tab PO DAILY 05/16/20 [History] Citalopram Hydrobromide [Citalopram HBr] 10 mg PO 199908/09/20 [History] Ergocalciferol [Vitamin D2 (1250 Mcg = 52530 Iu)] 50,000 unit PO WEEKLY 08/09/20 [History] Inulin/Chromium Picolinate [Fiber Gummies Chew] 2 each PO DAILY 08/09/20 [History] polyethylene glycoL 3350 [Miralax] 17 gm PO DAILY PRN 08/09/20 [History] Omeprazole [PriLOSEC] 40 mg PO DAILY #90 cap 08/13/20 [Rx] Follow [facility]ment(s[facility] [place] [place] [facility] [place] Patient Instructions/Handouts: Esophageal Dilation (DC) Activity/Diet/Wound Care/Special Instructions: Liquid diet today. Blenderized or well-chewed food tomorrow. Follow up in bariatric center Discharge Disposition: HOME SELF-CARE
[2020-08-13 08:27] VITALS: BP 143/84; PULSE 62
== END 2020-08-13 08:39 | disposition home or self-care (01) ==
LOC: ORWHC2ENDO 06:53
PROVIDERS: ATTEND Surgery Plastic and Reconstructive Surgery
DX: K95.89 Other complications of other bariatric procedure (principal); K56.699 Other intestinal obstruction unspecified as to partial versus complete obstruction; K21.00 Gastro-esophageal reflux disease with esophagitis, without bleeding; K22.10 Ulcer of esophagus without bleeding; K44.9 Diaphragmatic hernia without obstruction or gangrene; M19.90 Unspecified osteoarthritis, unspecified site; D50.9 Iron deficiency anemia, unspecified; Z80.0 Family history of malignant neoplasm of digestive organs; Z86.711 Personal history of pulmonary embolism; Z86.79 Personal history of other diseases of the circulatory system; Z87.19 Personal history of other diseases of the digestive system; Z90.49 Acquired absence of other specified parts of digestive tract; Z98.890 Other specified postprocedural states; Z98.51 Tubal ligation status; Z89.021 Acquired absence of right finger(s); Z98.41 Cataract extraction status, right eye; Z98.42 Cataract extraction status, left eye; Z87.891 Personal history of nicotine dependence; Z79.899 Other long term (current) drug therapy
CPT/HCPCS: 43245; J2001; J2704; C1726

== ENCOUNTER → 2020-08-15 | Outpatient (CLI) | payer BC ==
[2020-08-15 16:27] VITALS: BP 154/74; PULSE 63; RESP 18; TEMP 97.9; BMI 32.5
--- NOTE | 2020-08-15 17:10 | P.PN ---
Subjective Progress Note Date: 08/15/20 DATE OF SERVICE: 08/15/2020 CHIEF COMPLAINT: Status post gastric bypass HISTORY OF PRESENT ILLNESS: Ashley Melo is a 59-year-old female who comes with lifelong morbid obesity. She had a gastric bypass in 2008 at [facility]. She developed complications from her surgery including small bowel obstruction and incisional hernia. She also had a tummy tuck. Her highest weight was 303 pounds. Her lowest weight was 147 pounds. She comes in with new weight gain including generalized abdominal pain. She reports no further emesis following her upper endoscopy. She presents in follow-up of her abdominal pain. At height of 5 feet 5 inches, her ideal body weight is 149 pounds. Her highest weight was 303 pounds, BMI 50.5. She comes in 196 pounds from 184 pounds, 3 months ago. She has gained 12 pounds in 3 months. Lifetime weight loss is 107 pounds. Her percent excess weight loss is 70%. Her body mass index is 32.6. She is 47 pounds overweight. PAST MEDICAL HISTORY: 1. Morbid obesity due to excess calories 2. Body mass index, 50.5 3. Gastroesophageal reflux disease 4. Hypothyroidism 5. Anxiety 6. Depressive disorder PAST SURGICAL HISTORY: 1. Gastric bypass, 2008 2. Panniculectomy 3. Bowel resection 4. Hernia repair 5. Joint replacement 6. Tubal ligation 7. Hand surgery 8. Cataract surgery HOME MEDICATIONS: Home Medications Medication Instructions Recorded Confirmed Multivitamins, Thera [Multivitamin 1 tab PO DAILY 05/16/20 08/20/20 (formulary)] Ergocalciferol [Vitamin D2 (1250 50,000 unit PO WEEKLY 08/09/20 08/20/20 Mcg = 31151 Iu)] Inulin/Chromium Picolinate [Fiber 2 each PO DAILY 08/09/20 08/20/20 Gummies Chew] polyethylene glycoL 3350 [Miralax] 17 gm PO DAILY PRN 08/09/20 08/20/20 Citalopram Hydrobromide [CeleXA] 10 mg PO DAILY 08/15/20 08/20/20 Previous Rx's Medication Instructions Recorded Omeprazole [PriLOSEC] 40 mg PO DAILY #90 cap 08/13/20 Allergies Allergy/AdvReac Type Severity Reaction Status Date / Time No Known Allergies Allergy Verified 08/20/20 09:01 ALLERGIES: Denies SOCIAL HISTORY: Denies past tobacco use. FAMILY HISTORY: No family history of ulcerative colitis disease or Crohn's disease. Family history of morbid obesity. No lupus in the family. No reports of stomach or esophageal cancer. REVIEW OF ORGAN SYSTEMS: CONSTITUTIONAL: At height of 5 feet 5 inches, her ideal body weight is 149 pounds. Her highest weight was 303 pounds, BMI 50.5. She comes in 184 pounds. Her body mass index is 30.6. She is 35 pounds overweight. HEENT: Denies any active troubles with vision or hearing. ENDOCRINE: Denies diabetes. Has hypothyroidism. CARDIOVASCULAR: Denies past reports of palpitations or heart attacks or chest pain. RESPIRATORY: Has daytime somnolence. Has asthma. GASTROINTESTINAL: Denies any bright red blood per rectum. No diarrhea. No constipation. Has gastroesophageal reflux disease. MUSCULOSKELETAL: Has lower back pain and joint pain. Has osteoarthritis of the knees. NEURO: No headaches. No seizure disorders. PSYCH: Has depression. No suicidal ideation. RHEUMATOLOGIC: No lupus. No rheumatoid arthritis. HEMATOLOGIC: Denies any abnormal bleeding or bruising. No personal history of DVTs. SKIN: No rash. No skin cancer. PHYSICAL EXAM: VITAL SIGNS: Height 5 foot 5 inches, weight 184 pounds. BMI 30.6 Vital Signs Temp 97.9 F 08/15/20 16:21 Pulse 63 08/15/20 16:21 Resp 18 08/15/20 16:21 BP 154/74 08/15/20 16:21 Pulse Ox GENERAL: Well-developed in no acute distress. HEENT: No scleral icterus. Extraocular movements grossly intact. Hears conversational speech. No nasal drainage. NECK: Supple without lymphadenopathy. CHEST: Nonlabored respirations with equal bilateral excursions. CARDIOVASCULAR: Regular rate and regular rhythm. Distal 2+ pulses. ABDOMEN: Obese, soft, nontender, nondistended. MUSCULOSKELETAL: No clubbing, cyanosis. NEURO: No focal or lateralizing signs. Cranial nerves 2 through 12 grossly within normal limits. PSYCH: Appropriate affect. Alert and oriented to person, place and time. SKIN: Good skin turgor. Well perfused. LABS: Hemoglobin low consistent with anemia. Iron, ferritin, and percent iron saturation is low. HDL is elevated. Vitamin D is low. PTH is elevated with secondary hyperparathyroidism. STUDIES: Barium swallow independently reviewed demonstrating small incarcerated hiatal hernia and stenosis of the gastroesophageal junction. CT of the abdomen and pelvis independently reviewed shows multiple liver cysts. No mesenteric swirls. No small bowel obstruction. No recurrent ventral hernia. RADIOLOGY: Barium swallow report confirm gastroesophageal reflux disease. CT of the abdomen and pelvis report confirms small right inguinal hernia. Questionable gastric ulcer with gastric thickening. EGD FINDINGS: Squamocolumnar junction unremarkable at 37 cm. Stricture of approximately 9.5 mm encountered. Gastric pouch 3 cm Sliding hiatal hernia, 1 cm LA grade B erosive esophagitis No chronic gastrojejunal ulceration encountered. Successful balloon dilatation to 18 mm. ASSESSMENT: 1. Morbid obesity due to excess calories 2. Body mass index, 50.5 3. Gastroesophageal reflux disease 4. Hypothyroidism 5. Anxiety 6. Depressive disorder 7. Iron deficiency anemia 8. Secondary hyperparathyroidism 9. Gastrojejunal stricture 10. Hiatal hernia PLAN: 1. She has a symptomatic hiatal hernia. Recommend robotic hiatal hernia repair for recurrent symptoms. 2. Recommend 12-lead EKG for cardiac risk assessment. 3. Recommend iron infusion for symptomatic iron deficiency anemia. 4. Recommend calcium 1200 mg and vitamin D 50,000 units weekly for secondary hyperparathyroidism. 5. She is elevated risk for complications with multiple prior abdominal surgeries and previous gastric bypass. Objective - Vital Signs Vital signs: Vital Signs Temp 97.9 F 08/15/20 16:21 Pulse 63 08/15/20 16:21 Resp 18 08/15/20 16:21 BP 154/74 08/15/20 16:21 Pulse Ox Intake & Output 08/14/20 08/15/20 08/15/20 18:59 06:59 18:59 Weight 88.904 kg
== END | disposition home or self-care (01) ==
LOC: BARWHC3 15:25
PROVIDERS: ATTEND Surgery Plastic and Reconstructive Surgery
DX: E66.01 Morbid (severe) obesity due to excess calories (principal); Z68.43 Body mass index [BMI] 50.0-59.9, adult; K21.9 Gastro-esophageal reflux disease without esophagitis; F32.9 Major depressive disorder, single episode, unspecified; F41.9 Anxiety disorder, unspecified; D50.9 Iron deficiency anemia, unspecified; E03.9 Hypothyroidism, unspecified; N25.81 Secondary hyperparathyroidism of renal origin; K56.609 Unspecified intestinal obstruction, unspecified as to partial versus complete obstruction; K44.9 Diaphragmatic hernia without obstruction or gangrene; Z98.84 Bariatric surgery status; K43.2 Incisional hernia without obstruction or gangrene; J45.909 Unspecified asthma, uncomplicated
CPT/HCPCS: 99211

== ENCOUNTER → 2020-09-27 | Outpatient (CLI) | payer BC ==
[2020-09-27 10:53] VITALS: BMI 31.5
== END ==
LOC: BARWHC3 09:02
PROVIDERS: ATTEND Surgery Plastic and Reconstructive Surgery
DX: E66.01 Morbid (severe) obesity due to excess calories (principal); Z68.31 Body mass index [BMI] 31.0-31.9, adult; Z71.3 Dietary counseling and surveillance
CPT/HCPCS: 97803

== ENCOUNTER → 2021-01-16 | Outpatient (CLI) | payer BC ==
[2021-01-16 15:37] VITALS: BP 129/80; PULSE 62; RESP 18; TEMP 97.3; BMI 33.4
--- NOTE | 2021-01-16 16:00 | P.PN ---
Subjective Progress Note Date: 01/16/21 She comes in with weight gain. Recommend check labs. Food diary journal. She had prior abdominal pain. She is vomiting. She reports intolerance to roast pork roast. She has severe adhesions. Recommend lysis of adhesions. Objective - Vital Signs Vital signs: Vital Signs Temp 97.3 F L 01/16/21 15:32 Pulse 62 01/16/21 15:32 Resp 18 01/16/21 15:32 BP 129/80 01/16/21 15:32 Pulse Ox Intake & Output 01/15/21 01/16/21 01/16/21 18:59 06:59 18:59 Weight 91.172 kg
== END | disposition home or self-care (01) ==
LOC: BARWHC3 14:34
PROVIDERS: ATTEND Surgery Plastic and Reconstructive Surgery
DX: E66.01 Morbid (severe) obesity due to excess calories (principal); Z68.33 Body mass index [BMI] 33.0-33.9, adult
CPT/HCPCS: 99211

== ENCOUNTER → 2021-01-17 | Outpatient (CLI) | payer BC ==
[2021-01-17 14:55] LABS: INR 0.9 (<1.2); Prothrombin Time 9.8 sec (9.0-12.0)
[2021-01-17 19:13] LABS: HCT 40.7 % (37.2-46.3); HGB 12.5 g/dL (12.0-15.0); MCH 29.5 pg (27.0-32.0); MCHC 30.7 g/dL (32.0-37.0); Mean Platelet Volume 10.8 fL (9.5-12.2); Platelet Count 233 X 10*3/uL (140-440); RBC 4.24 X 10*6/uL (4.10-5.20); RDW 12.9 % (11.5-14.5); WBC 4.66 X 10*3/uL (4.50-10.00)
[2021-01-18 02:55] LABS: African American GFR (CKD) 93.5 (60.0-200.0); Albumin 4.1 g/dL (3.80-4.90); Albumin/Globulin Ratio 1.86 (1.60-3.17); Anion Gap 8.3 mmol/L (4.00-12.00); BUN/Creat Ratio 17.5 Ratio (12.00-20.00); Calcium 8.5 mg/dL (8.7-10.3); Carbon Dioxide 25.7 mmol/L (21.6-31.8); Chol/HDL Ratio 2.34; Globulin 2.2 g/dL (1.6-3.3); LDL Cholesterol,Calculated 92.6 mg/dL (0.0-131.0); Non-African American GFR(CKD) 80.7 (60.0-200.0); Phosphorus 3.1 mg/dL (2.4-5.1); Potassium 4.7 mmol/L (3.5-5.5); Total Bilirubin 0.3 mg/dL (0.3-1.2); Total Protein 6.3 g/dL (6.2-8.2); VLDL Calculation 17.4 mg/dL (5.00-40.00)
[2021-01-18 02:56] LABS: % Iron Saturation 15.32 (12.00-45.00)
[2021-01-18 03:05] LABS: Ferritin 82.2 ng/mL (10.0-291.0)
[2021-01-18 12:36] LABS: Folate, Serum 15.9 ng/mL
[2021-01-18 12:39] LABS: Zinc, Serum 73 ug/dL (60-130)
[2021-01-21 06:35] LABS: Vitamin A 42 ug/dL (38-106)
[2021-01-21 09:14] LABS: Vit B1(Thiamine) 63 ug/L (38-122)
[2021-01-23 16:24] LABS: Selenium 116 mcg/L (63-160)
== END | disposition home or self-care (01) ==
LOC: LABWHC1 13:37
PROVIDERS: ATTEND Surgery Plastic and Reconstructive Surgery
DX: Z01.812 Encounter for preprocedural laboratory examination (principal); E66.01 Morbid (severe) obesity due to excess calories; E89.1 Postprocedural hypoinsulinemia; D50.8 Other iron deficiency anemias; E44.0 Moderate protein-calorie malnutrition; E55.9 Vitamin D deficiency, unspecified; K74.1 Hepatic sclerosis; N19 Unspecified kidney failure; K50.90 Crohn's disease, unspecified, without complications
CPT/HCPCS: 36415; 80053; 80061; 82306; 82525; 82607; 82728; 82746; 83036; 83540; 83550; 83735; 83970; 84100; 84134; 84255; 84425; 84443; 84590; 84630; 85027; 85610; 85730

== ENCOUNTER 2021-02-04 07:06 | Day surgery (SDC) | payer BC ==
[2021-02-01 11:08] VITALS: BMI 34.1
--- NOTE | 2021-02-04 05:37 | P.GSHP ---
History of Present Illness H&P Date: 02/04/21 CHIEF COMPLAINT: History of intra-abdominal adhesions HISTORY OF PRESENT ILLNESS: The patient is a 60-year-old female who presents with history of intra-abdominal adhesions from multiple prior surgeries including increasing abdominal pain. She now presents for diagnostic laparoscopy including lysis of adhesions. PAST MEDICAL HISTORY: Please see list. PAST SURGICAL HISTORY: Please see list. MEDICATIONS: Please see list. ALLERGIES: Please see list. SOCIAL HISTORY: Please see list. FAMILY HISTORY: Please see list. REVIEW OF ORGAN SYSTEMS: CONSTITUTIONAL: No reports of fevers or chills. GI: Denies any blood in stools PHYSICAL EXAM: VITAL SIGNS: Stable GENERAL: Well-developed pleasant and in no acute distress. HEENT: No scleral icterus. Extraocular movements grossly intact. Moist buccal mucosa. NECK: Supple without lymphadenopathy. CHEST: Unlabored respirations. Equal bilateral excursions. CARDIOVASCULAR: Regular rate and rhythm. Distal 2+ pulses. ABDOMEN: Soft, diffuse abdominal tenderness. No peritonitis. MUSCULOSKELETAL: No clubbing, cyanosis, or edema. ASSESSMENT: 1. Diffuse abdominal pain. 2. History of multiple abdominal surgeries. 3. Intra-abdominal adhesions. PLAN: 1. Robotic lysis of adhesions were described in detail including risk of injury to the intestine, need for further surgery, and open technique. 2. DVT prophylaxis. 3. Antibiotic prophylaxis. Past Medical History Past Medical History: GERD/Reflux, Osteoarthritis (OA), Pulmonary Embolus (PE) Additional Past Medical History / Comment(s): past high bp-no current problems, hiatal hernia, frequent vomiting since gastric bypass surgery, irregular bowel movements/constipation on and off, History of Any Multi-Drug Resistant Organisms: None Reported Past Surgical History: Bariatric Surgery, Bowel Resection, Cholecystectomy, Hernia Repair, Orthopedic Surgery, Tubal Ligation Additional Past Surgical History / Comment(s): gastric bypass/ hiatal hernia repair and cholecystectomy then had bowel surgery couple days later for twisted bowel, rt hand surgery-fingers severed/reattached(pointer and little finger unsuccessful reattachment); abdominoplasty; brianna cataract surgery, EGD Past Anesthesia/Blood Transfusion Reactions: No Reported Reaction Smoking Status: Former smoker - Past Family History Mother Family Medical History: Cancer Additional Family Medical History / Comment(s): colon Medications and Allergies Home Medications Medication Instructions Recorded Confirmed Type Multivitamins, Thera [Multivitamin 1 tab PO DAILY 05/16/20 02/01/21 History (formulary)] Ergocalciferol [Vitamin D2 (1250 50,000 unit PO MO 08/09/20 02/01/21 History Mcg = 33742 Iu)] polyethylene glycoL 3350 [Miralax] 17 gm PO DAILY PRN 08/09/20 02/01/21 History ALPRAZolam [Xanax] 0.25 mg PO DIRECTED PRN 01/16/21 02/01/21 History Inulin/Chromium Picolinate [Fiber 2 each PO DAILY 01/16/21 02/01/21 History Gummies Chew] Sertraline [Zoloft] 50 mg PO DAILY 01/16/21 02/01/21 History Amitriptyline HCl [Elavil] 25 mg PO HS PRN 02/01/21 02/01/21 History Methylphenidate HCl [Concerta] 18 mg PO DAILY 02/01/21 02/01/21 History Omeprazole [PriLOSEC] 20 mg PO DAILY 02/01/21 02/01/21 History Allergies Allergy/AdvReac Type Severity Reaction Status Date / Time No Known Allergies Allergy Verified 02/01/21 10:21
[~2021-02-04 07:06] MED LIST changes: +ACETAMINOPHEN TAB 500 MG TAB PO PRN; +GABAPENTIN 300 MG CAP PO PRN; +HEPARIN SODIUM,PORCINE/PF 5,000 UNIT/0.5 ML SYRINGE SQ PRN; -LACTATED RINGERS 1,000 ML IV SCH; -LIDOCAINE 1% (10MG/ML) FOR IV START INTRADERMA PRN; +SCOPOLAMINE 1.5MG/72HR PATCH TRANSDERM PRN
[2021-02-04] MEDS ORDERED: ONDANSETRON 4 MG/2 ML VIAL ONE (07:23)
--- NOTE | 2021-02-04 07:32 | P.HPADDEND ---
H&P Addendum H&P Addendum Date: 02/04/21 Lysis of adhesions thoroughly described. Benefits and risks reviewed. Patient wants to proceed.
[2021-02-04] MEDS ORDERED: LACTATED RINGERS 1,000 ML IV ONE (07:50)
[2021-02-04] MEDS ORDERED: DEXAMETHASONE SOD PHOSPHATE 4 MG/ML 1 ML VIAL IVP ONE (07:59)
[2021-02-04] MEDS ORDERED: ONDANSETRON 4 MG/2 ML VIAL IVP ONE (07:59)
[2021-02-04] MEDS ORDERED: fentaNYL (PF) 50 MCG/ML 2 ML AMP IVP ONE (08:24)
[2021-02-04] MEDS ORDERED: MIDAZOLAM 2 MG/2 ML VIAL IVP ONE (08:24)
[2021-02-04] MEDS ORDERED: SUCCINYLCHOLINE CHLORIDE 100 MG/5 ML SYR IV ONE (08:35)
[2021-02-04] MEDS ORDERED: NEOSTIGMINE 1 MG/ML 10 ML VIAL ONE (08:35)
[2021-02-04] MEDS ORDERED: ROCURONIUM 10 MG/ML (5 ML VIAL) IV ONE (08:35)
[2021-02-04] MEDS ORDERED: PROPOFOL 10 MG/ML 20 ML VIAL IV ONE (08:35)
[2021-02-04] MEDS ORDERED: GLYCOPYRROLATE 0.2 MG/ML 2 ML VIAL ONE (08:35)
[2021-02-04] MEDS ORDERED: MIDAZOLAM 2 MG/2 ML VIAL ONE (08:35)
[2021-02-04] MEDS ORDERED: LIDOCAINE 1% INJ 10MG/ML (20 ML MDV) ONE (08:35)
[2021-02-04] MEDS ORDERED: fentaNYL (PF) 50 MCG/ML 2 ML AMP ONE (08:35)
[2021-02-04] MEDS ORDERED: ROPIVACAINE 5MG/ML 20ML VIAL ONE (08:35)
[2021-02-04] MEDS ORDERED: SODIUM CHLORIDE 0.9% (PF) 10 ML VIAL ONE (08:35)
[2021-02-04] MEDS ORDERED: LIDOCAINE 2%-EPI 1:100,000 20 ML VIAL SQ ONE (09:17)
[2021-02-04 10:17] VITALS: TEMP 97
[2021-02-04 10:28] VITALS: RESP 16
--- NOTE | 2021-02-04 10:30 | P.OP ---
Date of Procedure: 02/04/21 Description of Procedure: SURGEON: DARA BRYANT MD PREOPERATIVE DIAGNOSES: 1. Chronic abdominal pain with history of small bowel obstruction 2. History of gastric bypass 3. Multiple abdominal surgeries 4. Peritoneal adhesions 5. Gastrojejunal stricture with dysphagia 6. Obesity due to excess calories POSTOPERATIVE DIAGNOSES: 1. Chronic abdominal pain with history of small bowel obstruction 2. History of gastric bypass 3. Multiple abdominal surgeries 4. Peritoneal adhesions 5. Gastrojejunal stricture with dysphagia 6. Obesity due to excess 7. Instrument small bowel volvulus 8. Multiple large liver cysts OPERATION: 1. Robotic-assisted da Saige Xi laparoscopic with extensive lysis of adhesions over 30 minutes ESTIMATED BLOOD LOSS: 5 mL. SPECIMENS REMOVED: None. COMPLICATIONS: None. OPERATIVE FINDINGS: 1. Fat-containing right inguinal hernia, indirect, 2 cm 2. Adhesions along the epigastrium, left upper quarant lysed with vessel sealer 3. Long mesentery of the small bowel with small bowel volvulus reduced 4. Complete scarring of Ahuja defect and jejunojejunostomy mesenteric defect 5. Redundant sigmoid colon with gaseous distention 6. Abnormal adhesions of biliopancreatic limb jejunostomy to diego limb divided 7. Normal terminal ileum and cecum unremarkable. 8. Large liver cyst along previous gallbladder fossa INDICATIONS: The patient is a 60-year-old female who presents with epigastric abdominal pain including left upper quadrant abdominal pain. She has recent history of bowel obstruction. Surgical intervention with diagnostic laparoscopy, lysis of adhesions were described. Informed consent was obtained. Robotic assisted laparoscopic approach was described. Benefits and risks of the procedure including but not limited to bleeding, infection, injury to the small bowel was described. Informed consent was obtained. DESCRIPTION OF PROCEDURE: Patient was brought to the operating room, placed in supine position. After general induction, the abdomen had been prepped and draped in standard sterile fashion. The robotic da Saige XI system was primed. After a timeout protocol was performed, the patient had been prepped and draped in standard sterile fashion. The robot was docked along the right lateral abdomen. The patient was repositioned in with right side up. Please note prior to docking of the robot; however, a 5 mm 0 degrees laparoscopic trocar entry was performed along the left upper quadrant. The abdomen was insufflated to 15 mmHg pressure which she tolerated well. Diagnostic laparoscopy was performed. A small less than 2 cm fat-containing right inguinal hernia was identified without incarceration. Next, three 8 mm robotic ports were placed along the right lateral abdominal wall. The camera 8-mm port was maintained along mid-lateral abdomen. Please note that the ports were placed at least 10 to 15 cm away from the target anatomy. Instruments including graspers and vessel sealer were interchanged by the treasury assistant. I had sat at the console. No evidence of incisional hernia was identified. Abdominal wall mesh was identified. The small bowel from the diego limb to distal ileum was inspected. The small bowel was again investigated from the terminal ileum to the ligament of Treitz with finding of redundant mesentery with active small bowel volvulus involving the jejunum to the jejunojejunostomy mesenteric defect. Abnormal adhesions to the jejunojejunostomy was identified and divided. The mesentery small bowel volvulus was reduced. No herniation of bowel was found along the Ahuja defect or jejunojejunostomy mesenteric defect which was completely scarred. Abnormal adhesions on the left upper quadrant the bowel was lysed using vessel sealer. Gaseous distention of sigmoid colon was identified secondary to highly redundant sigmoid colon. The terminal ileum and cecum was unremarkable. Extensive lysis of adhesions over 30 minutes was performed. The small bowel was viable.The robot was undocked. All pneumoperitoneum instruments were evacuated from the abdominal cavity. The incisions were reapproximated using 4-0 Monocryl in an interrupted subcuticular fashion. Please note along the trocar sites, local anesthetic was placed as a field block prior to insertion of all instruments. Exofin was applied to the skin. At the end of the procedure needle, sponge, and instrument count had been verified correct by the surgical technologist. The patient was transferred to postanesthesia care unit in stable condition. Plan - Discharge Summary Discharge Rx Participant: No New Discharge Prescriptions: Continue Multivitamins, Thera [Multivitamin (formulary)] 1 tab PO DAILY polyethylene glycoL 3350 [Miralax] 17 gm PO DAILY PRN PRN Reason: Constipation Ergocalciferol [Vitamin D2 (1250 Mcg = 15468 Iu)] 50,000 unit PO MO Sertraline [Zoloft] 50 mg PO DAILY Inulin/Chromium Picolinate [Fiber Gummies Chew] 2 each PO DAILY Omeprazole [PriLOSEC] 20 mg PO DAILY ALPRAZolam [Xanax] 0.25 mg PO DIRECTED PRN PRN Reason: Anxiety Amitriptyline HCl [Elavil] 25 mg PO HS PRN PRN Reason: INSOMNIA Methylphenidate HCl [Concerta] 18 mg PO DAILY Discharge Medication List Multivitamins, Thera [Multivitamin (formulary)] 1 tab PO DAILY 05/16/20 [History] Ergocalciferol [Vitamin D2 (1250 Mcg = 30416 Iu)] 50,000 unit PO MO 08/09/20 [History] polyethylene glycoL 3350 [Miralax] 17 gm PO DAILY PRN 08/09/20 [History] ALPRAZolam [Xanax] 0.25 mg PO DIRECTED PRN 01/16/21 [History] Inulin/Chromium Picolinate [Fiber Gummies Chew] 2 each PO DAILY 01/16/21 [History] Sertraline [Zoloft] 50 mg PO DAILY 01/16/21 [History] Amitriptyline HCl [Elavil] 25 mg PO HS PRN 02/01/21 [History] Methylphenidate HCl [Concerta] 18 mg PO DAILY 02/01/21 [History] Omeprazole [PriLOSEC] 20 mg PO DAILY 02/01/21 [History] [facility] [facility] [place] [facility] [place] [facility]21 9:00 am Patient Instructions/Handouts: Lysis of Abdominal Adhesions (DC) Activity/Diet/Wound Care/Special Instructions: No lifting over 10 pounds in 2 weeks until Feb 18. October shower. No bath tub soaks for two weeks until Feb 18. Diet as tolerated. Use Tylenol, simethicone scheduled for the next 24-48 hours for best pain relief. Use ice along incisions for today to prevent swelling. Discharge Disposition: HOME SELF-CARE
[2021-02-04 12:37] VITALS: BP 135/81; PULSE 70
--- NOTE | 2021-02-04 13:08 | P.ANPRN ---
Procedure Note - Anesthesia - Nerve Block Performed Bilateral Erector Spinae Time Out Performed: Yes (:) Date of Procedure: 02/04/21 Procedure Start Time: Procedure Stop Time: Location of Patient: PreOp Indication: Acute Post-Operative Pain, Requested by Surgeon (Dr Nava) Sedation Type: Sedate with meaningful contact maintained Preparation: Sterile Prep Position: Prone Catheter: None Needle Types: Pajunk Needle Gauge: 21 Ultrasound used to visualize needle placement: Yes Ultrasound used to observe medication spread: Yes Injectate: 0.5% Ropivacaine (see comment for volume) (15cc +10cc PFNormal saline each side) Blood Aspirated: No Pain Paresthesia on Injection Noted: No Resistance on Injection: Normal Image Stored and Saved: Yes Events: Uneventful and Well Tolerated
[2021-02-05] MEDS ORDERED: Pre Op ABX Message 1 EACH MISC MISCELLANE ONE (05:00)
== END 2021-02-04 13:05 | disposition home or self-care (01) ==
LOC: OR 07:06
PROVIDERS: ATTEND Surgery Plastic and Reconstructive Surgery
DX: K66.0 Peritoneal adhesions (postprocedural) (postinfection) (principal); Z98.84 Bariatric surgery status; G89.29 Other chronic pain; E66.9 Obesity, unspecified; R13.10 Dysphagia, unspecified; K31.89 Other diseases of stomach and duodenum; K76.89 Other specified diseases of liver; Q43.8 Other specified congenital malformations of intestine; K21.9 Gastro-esophageal reflux disease without esophagitis; Z79.899 Other long term (current) drug therapy
CPT/HCPCS: 93005; 64999; 49329; J2250; J1100; J2710; J0690; J2405; J2001; J3010; J0330; J2704; J2795

== ENCOUNTER 2022-11-16 16:39 | Emergency (ER) | payer BC ==
[2022-11-16] MEDS ORDERED: KETOROLAC 15 MG/ML 1 ML VIAL IM STA (17:04)
--- NOTE | 2022-11-16 17:17 | ED ---
Extremity Problem HPI - General Chief complaint: Extremity Problem,Nontraumatic Stated complaint: left shoulder/arm pain Time Seen by Provider: 11/16/22 16:55 Source: patient, RN notes reviewed Mode of arrival: ambulatory Limitations: no limitations - History of Present Illness Initial comments: Patient is a 61-year-old female presenting to the emergency room with complaints of left bicep region pain initiating from her shoulder worse with movement. She reports that she had the pain when she woke up this morning and reports that it has intensified slightly throughout the day but she does admit to doing a lot of cleaning including cleaning her porch earlier in the day as well. She denies any associated symptoms including any chest pain, shortness of breath, abdominal pain, nausea, vomiting, neck pain, headache, dizziness, fevers or chills. She has past medical history significant for GERD, gastric bypass surgery, pulmonary emboli and osteoarthritis. - Related Data Home Medications Medication Instructions Recorded Confirmed Alendronate Sodium [Fosamax] 70 mg PO Q30D 11/16/22 11/16/22 Omeprazole Magnesium [PriLOSEC OTC] 20 mg PO DAILY 11/16/22 11/16/22 Sertraline HCl [Zoloft] 100 mg PO DAILY 11/16/22 11/16/22 Sertraline [Zoloft] 50 mg PO DAILY 11/16/22 11/16/22 Previous Rx's Medication Instructions Recorded Donepezil [Aricept] 10 mg PO DAILY 30 Days tab 09/24/21 Diclofenac Sodium [Voltaren 1 applic TOPICAL TID PRN 7 Days 11/16/22 Arthritis Pain 1% Gel] #100 gram Allergies Allergy/AdvReac Type Severity Reaction Status Date / Time No Known Allergies Allergy Verified 11/16/22 17:58 Review of Systems ROS Statement: Those systems with pertinent positive or pertinent negative responses have been documented in the HPI. ROS Other: All systems not noted in ROS Statement are negative. Past Medical History Past Medical History: GERD/Reflux, Osteoarthritis (OA), Pulmonary Embolus (PE) Additional Past Medical History / Comment(s): past high bp-no current problems, hiatal hernia, frequent vomiting since gastric bypass surgery, irregular bowel movements/constipation on and off, History of Any Multi-Drug Resistant Organisms: None Reported Past Surgical History: Bariatric Surgery, Bowel Resection, Cholecystectomy, Hernia Repair, Orthopedic Surgery, Tubal Ligation Additional Past Surgical History / Comment(s): gastric bypass/ hiatal hernia repair and cholecystectomy then had bowel surgery couple days later for twisted bowel, rt hand surgery-fingers severed/reattached(pointer and little finger unsuccessful reattachment); abdominoplasty; brianna cataract surgery, EGD lysis of adhesions 02-04- Past Anesthesia/Blood Transfusion Reactions: No Reported Reaction Past Psychological History: Anxiety, Depression Smoking Status: Former smoker Past Alcohol Use History: None Reported Past Drug Use History: None Reported - Past Family History Mother Family Medical History: Cancer Additional Family Medical History / Comment(s): colon General Exam Limitations: no limitations General appearance: alert, in no apparent distress Head exam: Present: atraumatic, normocephalic, normal inspection Eye exam: Present: normal appearance, PERRL, EOMI. Absent: scleral icterus, conjunctival injection, periorbital swelling ENT exam: Present: normal exam, mucous membranes moist Neck exam: Present: normal inspection, full ROM Respiratory exam: Absent: respiratory distress, accessory muscle use Cardiovascular Exam: Present: regular rate GI/Abdominal exam: Absent: distended, tenderness Left Shoulder Exam: Present: full ROM. Absent: tenderness (no tenderness on palpation), swelling, laceration, ecchymosis, deformity, crepitus, dislocation, tenderness over AC joint Upper Arm exam: Present: full ROM. Absent: tenderness (No tenderness on palpation), swelling, abrasion, laceration, ecchymosis, deformity, crepidus, dislocation Vascular: Absent: vascular compromise Back exam: Present: normal inspection Neurological exam: Present: alert, oriented X3, CN II-XII intact Psychiatric exam: Present: normal affect, normal mood Skin exam: Present: warm, dry, intact, normal color. Absent: rash Course Vital Signs 11/16/22 11/16/22 11/16/22 16:48 17:33 18:27 Temperature 98 F 97.6 F Pulse Rate 88 74 74 Respiratory 18 20 18 Rate Blood Pressure 132/83 116/85 134/78 O2 Sat by Pulse 100 98 99 Oximetry Medical Decision Making - Medical Decision Making Was pt. sent in by a medical professional or institution (, PA, ESCALATOR ATTENDANT, urgent care, hospital, or [facility]...) When possible be specific @ -No Did you speak to anyone other than the patient for history (EMS, parent, family, police, friend...)? What history was obtained from this source @ -No Did you review nursing and triage notes (agree or disagree)? Why? @ -I reviewed and agree with nursing and triage notes Were old charts reviewed (outside hosp., previous admission, EMS record, old EKG, old radiological studies, urgent care reports/EKG's, [facility] records)? Report findings @ -No old charts were reviewed Differential Diagnosis (chest pain, altered mental status, abdominal pain women, abdominal pain men, vaginal bleeding, weakness, fever, dyspnea, syncope, headache, dizziness, GI bleed, back pain, seizure, CVA, palpatations, mental health, musculoskeletal)? @ -Differential Musculoskeletal Muscular strain, contusion, ligament sprain, fracture, arthritis, septic arthritis, bursitis, cellulitis, muscle spasm, nerve compression, DVT, arterial occlusion, herpes zoster, electrolyte abnormality, tumor.... This is not meant to be in all inclusive list EKG interpreted by me (3pts min.). @ -None done X-rays interpreted by me (1pt min.). @ -X-ray left shoulder: Degenerative changes in the acromioclavicular joint. No dislocation, soft tissue swelling or fracture. CT interpreted by me (1pt min.). @ -None done U/S interpreted by me (1pt. min.). @ -None done What testing was considered but not performed or refused? (CT, X-rays, U/S, labs)? Why? @ -None What meds were considered but not given or refused? Why? @ -None Did you discuss the management of the patient with other professionals (professionals i.e. , PA, ESCALATOR ATTENDANT, lab, RT, psych nurse, director of social work, conventions assistant, teacher, identification officer, correctional casework specialist)? Give summary @ -No Was smoking cessation discussed for >3mins.? @ -No Was critical care preformed (if so, how long)? @ -No Were there social determinants of health that impacted care today? How? (Homelessness, low income, unemployed, alcoholism, drug addiction, transportation, low edu. Level, literacy, decrease access to med. care, fdc, rehab)? @ -No Was there de-escalation of care discussed even if they declined (Discuss DNR or withdrawal of care, Hospice)? DNR status @ -No What co-morbidities impacted this encounter? (DM, HTN, Smoking, COPD, CAD, Cancer, CVA, ARF, Chemo, Hep., AIDS, mental health diagnosis, sleep apnea, morbid obesity)? @ -None Was patient admitted / discharged? Hospital course, mention meds given and route, prescriptions, significant lab abnormalities, going to OR and other pertinent info. @ -61-year-old female presenting to the emergency room with complaints of left bicep region pain initiating from her shoulder worse with movement. She reports that she had the pain when she woke up this morning and reports that it has intensified slightly throughout the day but she does admit to doing a lot of cleaning including cleaning her porch earlier in the day as well. No indication for laboratory studies. Will obtain x-ray of the left shoulder given sudden onset of pain however suspect osteoarthritis given known history of osteoarthritis. Will give Toradol IM for pain. X-ray left shoulder negative. Pain improved somewhat IM Toradol. Patient unable take oral NSAIDs due to previous gastric bypass. Advised the use of Voltaren gel topically for arthritic pain will prescribed. Advised use of Tylenol [id number] for pain as well. Encouraged rest and ice as needed. Advise follow-up with primary care provider. Will discharge home in stable condition with both her and gel and [id number] Tylenol to treat left shoulder pain advising follow-up with primary care provider. Undiagnosed new problem with uncertain prognosis? @ -No Drug Therapy requiring intensive monitoring for toxicity (Heparin, Nitro, Insulin, Cardizem)? @ -No Were any procedures done? @ -No Diagnosis/symptom? @ -Left shoulder and upper limb pain Acute, or Chronic, or Acute on Chronic? @ -Acute Uncomplicated (without systemic symptoms) or Complicated (systemic symptoms)? @ -Uncomplicated Side effects of treatment? @ -No Exacerbation, Progression, or Severe Exacerbation? @ -No Poses a threat to life or bodily function? How? (Chest pain, [place], [place], pneumonia, PE, COPD, DKA, ARF, appy, cholecystitis, CVA, Diverticulitis, Homicidal, Suicidal, threat to staff... and all critical care pts) @ -No Case discussed with Dr. Chen - Radiology Data Radiology results: report reviewed, image reviewed Disposition Clinical Impression: Pain in left shoulder, Left upper limb pain Disposition: HOME SELF-CARE Condition: Stable Instructions (If sedation given, give patient instructions): Shoulder Pain (ED) Additional Instructions: Utilize Voltaren topical anti-inflammatory gel for pain relief along with Tylen ol as needed. Gentle range of motion encouraged. Avoid repetitive activities such as sweeping. Please follow-up with your primary care provider. Please return to the Emergency Department if symptoms worsen or any other concerns. Prescriptions: Diclofenac Sodium [Voltaren Arthritis Pain 1% Gel] 1 applic TOPICAL TID PRN 7 Days #100 gram PRN Reason: Pain Is patient prescribed a controlled substance at d/c from ED?: No Referrals: Nonstaff,Physician [REFERRING] - 1-2 days Time of Disposition: 18:14
--- NOTE | 2022-11-16 17:19 | XR ---
EXAMINATION TYPE: XR shoulder complete LT DATE OF EXAM: 11/16/2022 5:14 PM INDICATION: Patient age:Female; 61 years old; Reason for study: pain; COMPARISON: None TECHNIQUE: The left shoulder was examined in AP, internally rotated and scapular Y projections. . FINDINGS: No evidence of acute osseous pathology, joint dislocation, or soft tissue swelling. Degenerative elkins ges of the acromioclavicular joint are noted. The remaining portions of the visualized chest are unre markable. IMPRESSION: No acute osseous pathology.
[2022-11-16 17:35] VITALS: PULSE 74; TEMP 97.6
[2022-11-16 18:28] VITALS: BP 134/78; RESP 18
== END 2022-11-16 18:27 | disposition home or self-care (01) ==
LOC: EC 16:39
DX: M25.512 Pain in left shoulder (principal); M79.602 Pain in left arm; K21.9 Gastro-esophageal reflux disease without esophagitis; M19.90 Unspecified osteoarthritis, unspecified site; F41.9 Anxiety disorder, unspecified; F32.A Depression, unspecified; Z87.891 Personal history of nicotine dependence; Z79.899 Other long term (current) drug therapy
CPT/HCPCS: 73030; 99283; 96372; J1885